=== PATIENT | male | born 1945 | race Caucasian/White ===

== ENCOUNTER 2016-07-14 12:44 | Emergency (ER) | payer OTHER ==
[~2016-07-14] VITALS: Ht 165.1 cm; Wt 110.0 kg
[~2016-07-14 12:44] MED LIST: ASPI81 PO; ATEN-100 PO; CLOP75 PO; COMBAER INH; FENO160T2 PO; FLUO20TA20 PO; FOLI1TAB PO; FURO20TA PO; GABA300C3 PO; HUMUINJ5 SC; LISI-360 PO; NITR0.1D TD; POTA-243 PO; SIMV40TA PO
[2016-07-14 13:09] VITALS: PULSE 78; RESP 18; TEMP 98; O2SAT 95
[2016-07-14 13:13] VITALS: BP 156/74; PULSE 75; RESP 18; O2SAT 98
[2016-07-14] MEDS ORDERED: SODIUM CHLORIDE 0.9% FLUSH 10 ML FLUSH IVF PRN (13:15)
[2016-07-14 13:17] VITALS: RESP 20; O2SAT 98
--- NOTE | 2016-07-14 13:35 | RADRPT ---
EXAM DATE/TIME: 07/14/2016 13:20 [facility] COMPARISON: No previous studies available for comparison. INDICATIONS : Short of breath. Lower extremity edema. MEDICAL HISTORY : Chronic obstructive pulmonary disease. SURGICAL HISTORY : None. ENCOUNTER: Initial ACUITY: 1 day PAIN SCORE: 0/10 LOCATION: Bilateral chest FINDINGS: Minimal changes are present in the left base. The right lung is clear.. The cardiomediastinal conto urs are unremarkable. Osseous structures are intact. CONCLUSION: Minimal parenchymal changes left base. Shane Kennedy MD FACR on July 14, 2016 at 13:33 Board Certified Radiologist. This report was verified electronically.
[2016-07-14 13:48] LABS: AUTOMATED NEUTROPHIL # 6.6 TH/MM3 (1.8-7.7); BASOPHIL # 0.1 TH/MM3 (0-0.2); BASOPHIL % 0.6 % (0.0-2.0); EOSINOPHIL # 0.2 TH/MM3 (0-0.4); EOSINOPHIL % 1.9 % (0.0-4.0); HEMATOCRIT 36.5 % (39.0-51.0); HEMO FLAGS DIFF FINAL; LYMPH % 27.7 % (9.0-44.0); LYMPHOCYTE # 2.9 TH/MM3 (1.0-4.8); MEAN CELL VOLUME 87.7 FL (80.0-100.0); MEAN CORPUSCULAR HEMOGLOBIN 29.2 PG (27.0-34.0); MEAN CORPUSCULAR HGB CONC 33.2 % (32.0-36.0); MONO % 6.4 % (0.0-8.0); NEUT % 63.4 % (16.0-70.0); PLATELET COUNT 206 TH/MM3 (150-450); RED BLOOD COUNT 4.17 MIL/MM3 (4.50-5.90); RED CELL DISTRIBUTION WIDTH 16.4 % (11.6-17.2); WHITE BLOOD COUNT 10.5 TH/MM3 (4.0-11.0)
[2016-07-14 14:04] LABS: APTT (PATIENT) 26.5 SEC (24.3-30.1); PROTHROMBIN TIME - PATIENT 10.7 SEC (9.8-11.6)
[2016-07-14 14:07] LABS: ANION GAP 8 MEQ/L (5-15); AST (GOT) 18 U/L (15-37); BLOOD UREA NITROGEN 18 MG/DL (7-18); CHLORIDE 103 MEQ/L (98-107); GLOMERULAR FILTRATION RATE 71 ML/MIN (>89); MAGNESIUM 1.4 MG/DL (1.5-2.5); POTASSIUM 3.4 MEQ/L (3.5-5.1); SODIUM (NA) 143 MEQ/L (136-145)
[2016-07-14 14:11] LABS: ALKALINE PHOSPHATASE 69 U/L (45-117); ALT (GPT) 22 U/L (12-78); CREATINE KINASE 288 U/L (39-308); TOTAL BILIRUBIN ADULT 0.3 MG/DL (0.2-1.0)
[2016-07-14 14:24] LABS: CKMB 4.8 NG/ML (0.5-3.6)
[2016-07-14] MEDS: RESP: ALBUTEROL 2.5 MG/IPRATROPIUM 0.5 MG NEB (SCH) INH (14:53)
--- NOTE | 2016-07-14 15:06 | PD ---
HPI Chief Complaint: Respiratory Distress Time Seen by Provider: 12:56 Travel History International Travel<30 days: No Contact w/Intl Traveler<30days: No Traveled to known affect area: No History of Present Illness HPI Patient is a 71-year-old male with history of COPD, CHF, diabetes, A. fib, coronary disease, chronic kidney disease who presents to emergency room for evaluation of possible CHF. Patient reports that he was admitted to for the hospital last month and went to the CT for a follow-up visit. Patient reports that he was told to come to the emergency room for evaluation of possible CHF exacerbation. Patient reports that he has been having dyspnea on exertion which has been ongoing for the past few years, patient reports that his symptoms are unchanged today. he does take Bumex for his CHF, and he does follow -up with Dr. Neff in the office. Patient was seen last week in the office and was told that his heart was fine and that he could be seen in 3 months. Patient reports that he also has history of COPD, reports that he does not use home oxygen. EMS reports that pt's pulse ox on room air was 93%. Patient denies any chest. This time. Patient reports that his dyspnea and exertion is at baseline for him. Patient reports no cough or congestion, reports that his legs are swollen but there are always swollen. Patient reports "i didn't want to come here but the mt made me come here." Patient reports no other c/o at this time [facility] Past Medical History Arthritis: Yes Asthma: Yes Autoimmune Disease: No Depression: Yes Cancer: No Cardiovascular Problems: Yes High Cholesterol: Yes Chest Pain: Yes COPD: Yes Diabetes: Yes Patient Takes Glucophage: No Endocrine: Yes Genitourinary: Yes Headaches: Yes Hypertension: Yes Immune Disorder: No Implanted Vascular Access Dvce: Yes Kidney Stones: Yes (LITHOTRIPSY IN PAST, STILL HAS SOME STONES) Musculoskeletal: Yes Neurologic: Yes Psychiatric: Yes Reproductive: No Respiratory: Yes Sleep Apnea: Yes (CPAP PT INSTRUCTED TO BRING WITH) Tetanus Vaccination: > 5 Years Influenza Vaccination: Yes Past Surgical History Body Medical Devices: CARDIAC STENT Cardiac Surgery: Yes (CARDIAC STENT) Eye Surgery: Yes (CATARACT BILAT.) Genitourinary Surgery: Yes (NEPHROURETERAL STENT FOR KIDNEY STONES) Pacemaker: No Other Surgery: Yes Social History Alcohol Use: No Tobacco Use: No Substance Use: No Allergies-Medications (Allergen,Severity, Reaction): Coded Allergies: Penicillin (Verified Allergy, Severe, "STIFF A BOARD", 07/14/16) Reported Meds & Prescriptions Reported Meds & Active Scripts Active Review of Systems General / Constitutional: No: Fever Eyes: No: Visual changes HENT: No: Headaches Cardiovascular: Positive: Dyspnea on exertion, No: Chest Pain or Discomfort Respiratory: Positive: Shortness of Breath Gastrointestinal: No: Abdominal Pain Genitourinary: No: Dysuria Musculoskeletal: No: Pain Skin: No Rash Neurologic: No: Weakness Psychiatric: No: Depression Endocrine: No: Polydipsia Hematologic/Lymphatic: No: Easy Bruising Physical Exam Narrative GENERAL: nad, nontoxic SKIN: Focused skin assessment warm/dry. HEAD: Atraumatic. Normocephalic. EYES: Pupils equal and round. No scleral icterus. No injection or drainage. ENT: No nasal bleeding or discharge. Mucous membranes pink and moist. NECK: Trachea midline. No JVD. CARDIOVASCULAR: Regular rate and rhythm. No murmur appreciated. RESPIRATORY: No accessory muscle use. patient with diffuse scattered wheezing on exam GASTROINTESTINAL: Abdomen soft, non-tender, nondistended. Hepatic and splenic margins not palpable. MUSCULOSKELETAL: No obvious deformities. No clubbing. No cyanosis. No edema. NEUROLOGICAL: Awake and alert. No obvious cranial nerve deficits. Motor grossly within normal limits. Normal speech. PSYCHIATRIC: Appropriate mood and affect; insight and judgment normal. Data Data Last Documented VS Vital Signs Date Time Temp Pulse Resp B/P Pulse Ox O2 Delivery O2 Flow Rate FiO2 07/14/16 18:22 90 20 151/70 96 Nasal Cannula 2 07/14/16 13:09 98.0 Orders Complete Blood Count With Diff (07/14/16 13:15) Comprehensive Metabolic Panel (07/14/16 13:15) B-Type Natriuretic Peptide (07/14/16 13:15) Act Partial Throm Time (Ptt) (07/14/16 13:15) Prothrombin Time / Inr (Pt) (07/14/16 13:15) Magnesium (Mg) (07/14/16 13:15) Ckmb (Isoenzyme) Profile (07/14/16 13:15) Troponin I (07/14/16 13:15) Urinalysis - C+S If Indicated (07/14/16 13:15) Iv Access Insert/Monitor (07/14/16 13:15) Electrocardiogram (07/14/16 13:15) Ecg Monitoring (07/14/16 13:15) Oximetry (07/14/16 13:15) Chest, Single Ap (07/14/16 13:15) Sodium Chloride 0.9% Flush (Ns Flush) (07/14/16 13:15) CKMB (07/14/16 13:20) CKMB% (07/14/16 13:20) Albuterol-Ipratropium Neb (Duoneb Neb) (07/14/16 14:45) Magnesium Sulfate 1 Gm Premix (Magnesium (07/14/16 15:15) Troponin I (07/14/16 15:39) Labs Laboratory Tests Test 07/14/16 07/14/16 13:20 15:45 White Blood Count 10.5 TH/MM3 Red Blood Count 4.17 MIL/MM3 Hemoglobin 12.1 GM/DL Hematocrit 36.5 % Mean Corpuscular Volume 87.7 FL Mean Corpuscular Hemoglobin 29.2 PG Mean Corpuscular Hemoglobin 33.2 % Concent Red Cell Distribution Width 16.4 % Platelet Count 206 TH/MM3 Mean Platelet Volume 10.1 FL Neutrophils (%) (Auto) 63.4 % Lymphocytes (%) (Auto) 27.7 % Monocytes (%) (Auto) 6.4 % Eosinophils (%) (Auto) 1.9 % Basophils (%) (Auto) 0.6 % Neutrophils # (Auto) 6.6 TH/MM3 Lymphocytes # (Auto) 2.9 TH/MM3 Monocytes # (Auto) 0.7 TH/MM3 Eosinophils # (Auto) 0.2 TH/MM3 Basophils # (Auto) 0.1 TH/MM3 CBC Comment DIFF FINAL Differential Comment Prothrombin Time 10.7 SEC Prothromb Time International 1.0 RATIO Ratio Activated Partial 26.5 SEC Thromboplast Time Sodium Level 143 MEQ/L Potassium Level 3.4 MEQ/L Chloride Level 103 MEQ/L Carbon Dioxide Level 32.0 MEQ/L Anion Gap 8 MEQ/L Blood Urea Nitrogen 18 MG/DL Creatinine 1.03 MG/DL Estimat Glomerular Filtration 71 ML/MIN Rate Random Glucose 139 MG/DL Calcium Level 8.5 MG/DL Magnesium Level 1.4 MG/DL Total Bilirubin 0.3 MG/DL Aspartate Amino Transf 18 U/L (AST/SGOT) Alanine Aminotransferase 22 U/L (ALT/SGPT) Alkaline Phosphatase 69 U/L Total Creatine Kinase 288 U/L Creatine Kinase MB 4.8 NG/ML Troponin I LESS THAN 0.02 LESS THAN 0.02 NG/ML NG/ML B-Type Natriuretic Peptide 23 PG/ML Total Protein 7.2 GM/DL Albumin 3.3 GM/DL MDM Medical Decision Making Medical Screen Exam Complete: Yes Emergency Medical Condition: Yes Interpretation(s) EKG at 1348: normal sinus rhythm at 76 beats for minute, first-degree AV block, right bundle branch block, no acute changes Vital Signs Date Time Temp Pulse Resp B/P Pulse Ox O2 Delivery O2 Flow Rate FiO2 07/14/16 13:17 20 98 Nasal Cannula 2 07/14/16 13:13 79 20 98 Nasal Cannula 2 07/14/16 13:13 75 18 156/74 98 Nasal Cannula 2 07/14/16 13:09 98.0 78 18 95 Laboratory Tests Test 07/14/16 13:20 White Blood Count 10.5 TH/MM3 (4.0-11.0) Red Blood Count 4.17 MIL/MM3 (4.50-5.90) Hemoglobin 12.1 GM/DL (13.0-17.0) Hematocrit 36.5 % (39.0-51.0) Mean Corpuscular Volume 87.7 FL (80.0-100.0) Mean Corpuscular Hemoglobin 29.2 PG (27.0-34.0) Mean Corpuscular Hemoglobin 33.2 % Concent (32.0-36.0) Red Cell Distribution Width 16.4 % (11.6-17.2) Platelet Count 206 TH/MM3 (150-450) Mean Platelet Volume 10.1 FL (7.0-11.0) Neutrophils (%) (Auto) 63.4 % (16.0-70.0) Lymphocytes (%) (Auto) 27.7 % (9.0-44.0) Monocytes (%) (Auto) 6.4 % (0.0-8.0) Eosinophils (%) (Auto) 1.9 % (0.0-4.0) Basophils (%) (Auto) 0.6 % (0.0-2.0) Neutrophils # (Auto) 6.6 TH/MM3 (1.8-7.7) Lymphocytes # (Auto) 2.9 TH/MM3 (1.0-4.8) Monocytes # (Auto) 0.7 TH/MM3 (0-0.9) Eosinophils # (Auto) 0.2 TH/MM3 (0-0.4) Basophils # (Auto) 0.1 TH/MM3 (0-0.2) CBC Comment DIFF FINAL Differential Comment Prothrombin Time 10.7 SEC (9.8-11.6) Prothromb Time International 1.0 RATIO Ratio Activated Partial 26.5 SEC Thromboplast Time (24.3-30.1) Sodium Level 143 MEQ/L (136-145) Potassium Level 3.4 MEQ/L (3.5-5.1) Chloride Level 103 MEQ/L (98-107) Carbon Dioxide Level 32.0 MEQ/L (21.0-32.0) Anion Gap 8 MEQ/L (5-15) Blood Urea Nitrogen 18 MG/DL (7-18) Creatinine 1.03 MG/DL (0.60-1.30) Estimat Glomerular Filtration 71 ML/MIN (>89) Rate Random Glucose 139 MG/DL (74-106) Calcium Level 8.5 MG/DL (8.5-10.1) Magnesium Level 1.4 MG/DL (1.5-2.5) Total Bilirubin 0.3 MG/DL (0.2-1.0) Aspartate Amino Transf 18 U/L (15-37) (AST/SGOT) Alanine Aminotransferase 22 U/L (12-78) (ALT/SGPT) Alkaline Phosphatase 69 U/L (45-117) Total Creatine Kinase 288 U/L (39-308) Creatine Kinase MB 4.8 NG/ML (0.5-3.6) Troponin I LESS THAN 0.02 NG/ML (0.02-0.05) B-Type Natriuretic Peptide 23 PG/ML (0-100) Total Protein 7.2 GM/DL (6.4-8.2) Albumin 3.3 GM/DL (3.4-5.0) Last Impressions Chest X-Ray 07/14/16 1315 Signed Impressions: Service Date/Time: Thursday, July 14, 2016 13:20 - CONCLUSION: Minimal parenchymal changes left base. Shane Kennedy MD FACR Differential Diagnosis COPD exacerbation, CHF, electrolyte abnormality, pneumonia Narrative Course Patient is a 71-year-old male who presents to emergency room for evaluation of dyspnea on exertion which has been ongoing for the past few years. Patient was sent from the CT for evaluation of this as there was concerns for possible CHF exacerbation. Patient reports that he has been feeling fine, reports that he was recently discharged from [facility], reports that he is always short of breath and always has shortness of breath on exertion which is unchanged from his baseline. On evaluation, patient is nontoxic appearing, he does have bilateral lymphedema which appears chronic. CBC: WBC 10.5, hemoglobin 12.1, hematocrit 36.5, platelets 206 BMP: sodium 143, potassium 3.4, BUN 18, cr 1.03, glucose 139, mag 1.4 (plan to replete mag) trop less than 0.02, ckmb 4.8 bnp: 23 Last Impressions Chest X-Ray 07/14/16 1315 Signed Impressions: Service Date/Time: Tuesday, July 14, 2016 13:20 - CONCLUSION: Minimal parenchymal changes left base. Shane Kennedy MD FACR Patient re-evaluated, reports that he is feeling better, no complaints at this time. I did obtain recent records from [facility] from his last admission, patient was admitted to hospital on 05/20/16 and discharged on 05/28/16 after a prolonged visit. patient was admitted to the hospital as he was complaining of shortness of breath and nonproductive cough for almost 2 months. Patient was found to be hypoxic with a pulse OF 91% on room air and was found to be in A. fib RVR. Patient was placed on a Cardizem drip while hospitalized, troponins were trended which were negative. He was discharged to home after work up for COPD exacerbation, new onset A. fib, with a prescription for azithromycin which has since completed. I did offer patient admission to the hospital for his symptoms, he does have a mildly elevated CK-MB, patient refuses admission at this time. patient reports that he lives at home with his and there is no one to care for his pet. Patient reports that he will return to ER should symptoms return or progress. Plan to repeat trop prior to discharge after 1st set of trop - if neg, will discharge patient to home Diagnosis Primary Impression: COPD with exacerbation Patient Instructions: General Instructions Additional Instructions: Please follow up with your primary care doctor as soon as possible Return to ER as needed Return to ER if symptoms worsen or progress Med/Other Pt SpecificInfo: Prescription(s) given Disposition: 01 DISCHARGE HOME Condition: Thi Vasquez DO July 14, 2016 15:06
[2016-07-14] MEDS: MAGNESIUM SULFATE 1 GM PREMIX 100 ML IV SCH ×2 (15:39→17:13)
[2016-07-14 16:39] VITALS: BP 149/68; PULSE 97; RESP 20; O2SAT 96
[2016-07-14 18:22] VITALS: BP 151/70; PULSE 90; RESP 20; O2SAT 96
--- NOTE | 2016-07-15 11:44 | EKG ---
Date Performed: 07/14/2016 Time Performed: 13:48:30 PTAGE: 71 years EKG: Sinus rhythm WITH FIRST DEGREE AV BLOCK MARKED LEFT AXIS DEVIATION RIGHT BUNDLE BRANCH BLOCK ABNORMAL ECG PREVIOUS TRACING : 12/28/2011 11.00 Compared to prior tracing no significant change DOCTOR: Odell Hernandez Interpretating Date/Time 07/15/2016 11:42:09
[2016-08-11] MEDS ORDERED: INSU1SOL SQ (07:13)
[2016-08-11] MEDS ORDERED: PERC5TAB12 PO (10:09)
== END 2016-07-14 19:48 | disposition home or self-care (01) ==
LOC: NEPE 12:44
DX: J44.1 Chronic obstructive pulmonary disease with (acute) exacerbation (principal); I89.0 Lymphedema, not elsewhere classified; R94.31 Abnormal electrocardiogram [ECG] [EKG]; E11.9 Type 2 diabetes mellitus without complications; I10 Essential (primary) hypertension; E78.00 Pure hypercholesterolemia, unspecified; G47.30 Sleep apnea, unspecified; Z87.39 Personal history of other diseases of the musculoskeletal system and connective tissue; Z87.09 Personal history of other diseases of the respiratory system; Z86.59 Personal history of other mental and behavioral disorders; Z86.79 Personal history of other diseases of the circulatory system; Z87.448 Personal history of other diseases of urinary system; Z86.69 Personal history of other diseases of the nervous system and sense organs
CPT/HCPCS: 71010; 80053; 82550; 82552; 83735; 83880; 84484; 85025; 85610; 85730; 93005; 94640; 94664; 96365; 99285; J3475

== ENCOUNTER 2016-07-20 15:31 | Emergency (ER) | payer OTHER ==
[~2016-07-20] VITALS: Ht 165.1 cm; Wt 110.0 kg
[2016-07-20 15:33] VITALS: BP 164/70; PULSE 94; RESP 17; TEMP 97.8; O2SAT 91
[2016-07-20 16:30] VITALS: O2SAT 96
[2016-07-20] MEDS ORDERED: SODIUM CHLORIDE 0.9% FLUSH 10 ML FLUSH IVF PRN (16:30)
[2016-07-20 16:39] VITALS: O2SAT 95
[2016-07-20] MEDS: RESP: ALBUTEROL 2.5 MG/IPRATROPIUM 0.5 MG NEB (SCH) INH ×2 (16:50→16:51)
--- NOTE | 2016-07-20 16:50 | RADRPT ---
EXAM DATE/TIME: 07/20/2016 16:38 [facility] COMPARISON: CHEST SINGLE AP, July 14, 2016, 13:20. INDICATIONS : Short of breath. MEDICAL HISTORY : Chronic obstructive pulmonary disease. Myocardial infarction. SURGICAL HISTORY : Coronary artery stent. ENCOUNTER: Initial ACUITY: >1 year PAIN SCORE: 0/10 LOCATION: Bilateral chest FINDINGS: There is a lesser degree of inspiration than on the prior examination with associated crowding of the bronchopulmonary markings in the infrahilar region bilaterally. No focal areas of consolidation see n. Both hemidiaphragms are well delineated. The heart is normal in size. CONCLUSION: No focal infiltrate seen when taking into account degree of inspiration. Jake Jenkins MD on July 20, 2016 at 16:44 Board Certified Radiologist. This report was verified electronically.
[2016-07-20 16:58] LABS: AUTOMATED NEUTROPHIL # 9.4 TH/MM3 (1.8-7.7); BASOPHIL # 0.1 TH/MM3 (0-0.2); BASOPHIL % 0.5 % (0.0-2.0); EOSINOPHIL # 0.1 TH/MM3 (0-0.4); EOSINOPHIL % 0.9 % (0.0-4.0); HEMATOCRIT 35.8 % (39.0-51.0); HEMO FLAGS DIFF FINAL; MEAN CELL VOLUME 86.9 FL (80.0-100.0); MEAN CORPUSCULAR HEMOGLOBIN 29.8 PG (27.0-34.0); MEAN CORPUSCULAR HGB CONC 34.3 % (32.0-36.0); MONO % 6.8 % (0.0-8.0); NEUT % 75.8 % (16.0-70.0); PLATELET COUNT 169 TH/MM3 (150-450); RED BLOOD COUNT 4.12 MIL/MM3 (4.50-5.90); RED CELL DISTRIBUTION WIDTH 15.5 % (11.6-17.2); WHITE BLOOD COUNT 12.4 TH/MM3 (4.0-11.0)
[2016-07-20 17:10] LABS: PROTHROMBIN TIME - PATIENT 10.6 SEC (9.8-11.6)
[2016-07-20 17:34] LABS: ANION GAP 7 MEQ/L (5-15); AST (GOT) 16 U/L (15-37); BICARBONATE 33.2 MEQ/L (21.0-32.0); BLOOD UREA NITROGEN 25 MG/DL (7-18); CHLORIDE 99 MEQ/L (98-107); GLOMERULAR FILTRATION RATE 33 ML/MIN (>89); MAGNESIUM 1.6 MG/DL (1.5-2.5); POTASSIUM 3.7 MEQ/L (3.5-5.1); SODIUM (NA) 139 MEQ/L (136-145)
[2016-07-20 17:35] LABS: ALT (GPT) 17 U/L (12-78)
--- NOTE | 2016-07-20 17:35 | PD ---
HPI Chief Complaint: Respiratory Symptoms Time Seen by Provider: 16:05 Travel History International Travel<30 days: No Contact w/Intl Traveler<30days: No Traveled to known affect area: No History of Present Illness HPI Patient is a 71-year-old male with history of COPD, CHF, Diabetes, afbid, CAD, CKD who presents to emergency room for evaluation of COPD versus CHF exacerbation. Patient reports that he has not been feeling well for the past week. Patient reports that he has a productive cough with shortness of breath. Patient reports that when he coughs, he is not bringing up any sputum. Reports that he has increased phlegm in his throat which she cannot bring up. Patient reports that he is also been having difficulties lying down when he sleeps, reports that he feels too short of breath with this. Patient reports that he has chronic lymphedema to his lower extremities, reports that his left leg appears to be more swollen than normal. PFSH Past Medical History Hx Anticoagulant Therapy: Yes (Eliquis) Arthritis: Yes Asthma: Yes Autoimmune Disease: No Depression: Yes Cancer: No Cardiovascular Problems: Yes (A.fib, MA w/ stents) High Cholesterol: Yes Chest Pain: Yes COPD: Yes Diabetes: Yes Patient Takes Glucophage: No Endocrine: Yes Genitourinary: Yes Headaches: Yes Hypertension: Yes Immune Disorder: No Implanted Vascular Access Dvce: Yes Kidney Stones: Yes Musculoskeletal: Yes Neurologic: Yes Psychiatric: Yes Reproductive: No Respiratory: Yes (COPD, Sleep Apnea) Sleep Apnea: Yes (CPAP PT INSTRUCTED TO BRING WITH) Past Surgical History Body Medical Devices: CARDIAC STENT Cardiac Surgery: Yes (CARDIAC STENT) Eye Surgery: Yes (CATARACT BILAT.) Genitourinary Surgery: Yes (NEPHROURETERAL STENT FOR KIDNEY STONES) Pacemaker: No Other Surgery: Yes Social History Alcohol Use: No Tobacco Use: No Substance Use: No Allergies-Medications (Allergen,Severity, Reaction): Coded Allergies: Penicillin (Verified Allergy, Severe, "STIFF A BOARD", 07/14/16) Reported Meds & Prescriptions Reported Meds & Active Scripts Active Reported Aspirin 81 (Aspirin) 81 Mg Tabdr 81 Mg PO HS Humulin R U-500 (Concentrate) Kwikpen Inj (Insulin Regular (Human) Concentrate Inj) 1,500 Units/3 Ml Pen 18 Units SQ AC DINNER Humulin R U-500 (Concentrate) Kwikpen Inj (Insulin Regular (Human) Concentrate Inj) 1,500 Units/3 Ml Pen 22 Units SQ AC LUNCH Humulin R U-500 (Concentrate) Kwikpen Inj (Insulin Regular (Human) Concentrate Inj) 1,500 Units/3 Ml Pen 26 Units SQ AC BREAKFAST Combivent Respimat Inh (Ipratropium-Albuterol Inh) 20-100 Fdc/Act Aero 1 Puff INH QID Eliquis (Apixaban) 2.5 Mg Tab 2.5 Mg PO BID Atorvastatin (Atorvastatin Calcium) 40 Mg Tab 40 Mg PO HS Bumetanide 1 Mg Tab 1 Mg PO BID Tamsulosin (Tamsulosin HCl) 0.4 Mg Cap 0.4 Mg PO HS Gabapentin 600 Mg Tab 600 Mg PO BID Digoxin 0.25 Mg Tab 0.25 Mg PO DAILY Diltiazem (Diltiazem HCl) 30 Mg Tab 30 Mg PO QID Review of Systems General / Constitutional: No: Fever Eyes: No: Visual changes HENT: No: Headaches Cardiovascular: Positive: Dyspnea on exertion, No: Chest Pain or Discomfort Respiratory: Positive: Cough, Shortness of Breath Gastrointestinal: No: Abdominal Pain Genitourinary: No: Dysuria Musculoskeletal: No: Pain Skin: No Rash Neurologic: No: Weakness Psychiatric: No: Depression Endocrine: No: Polydipsia Hematologic/Lymphatic: No: Easy Bruising Physical Exam Narrative GENERAL: moderate distress SKIN: Focused skin assessment warm/dry. HEAD: Atraumatic. Normocephalic. EYES: Pupils equal and round. No scleral icterus. No injection or drainage. ENT: No nasal bleeding or discharge. Mucous membranes pink and moist. NECK: Trachea midline. No JVD. CARDIOVASCULAR: Regular rate and rhythm. No murmur appreciated. RESPIRATORY: No accessory muscle use. Clear to auscultation. Breath sounds equal bilaterally. GASTROINTESTINAL: Abdomen soft, non-tender, nondistended. Hepatic and splenic margins not palpable. MUSCULOSKELETAL: No obvious deformities. No clubbing. No cyanosis. +3 edema to LLE, +2 edema to RLE NEUROLOGICAL: Awake and alert. No obvious cranial nerve deficits. Motor grossly within normal limits. Normal speech. PSYCHIATRIC: Appropriate mood and affect; insight and judgment normal. Data Data Last Documented VS Vital Signs Date Time Temp Pulse Resp B/P Pulse Ox O2 Delivery O2 Flow Rate FiO2 07/20/16 16:39 95 Nasal Cannula 07/20/16 16:30 2.00 07/20/16 15:33 97.8 94 17 164/70 Orders Complete Blood Count With Diff (07/20/16 16:24) Comprehensive Metabolic Panel (07/20/16 16:24) B-Type Natriuretic Peptide (07/20/16 16:24) Act Partial Throm Time (Ptt) (07/20/16 16:24) Prothrombin Time / Inr (Pt) (07/20/16 16:24) Magnesium (Mg) (07/20/16 16:24) Urinalysis - C+S If Indicated (07/20/16 16:24) Iv Access Insert/Monitor (07/20/16 16:24) Electrocardiogram (07/20/16 16:24) Ecg Monitoring (07/20/16 16:24) Oximetry (07/20/16 16:24) Chest, Single Ap (07/20/16 16:24) Sodium Chloride 0.9% Flush (Ns Flush) (07/20/16 16:30) Albuterol-Ipratropium Neb (Duoneb Neb) (07/20/16 16:30) Group A Rapid Strep Screen (07/20/16 16:24) Strep Culture (Group A) (07/20/16 16:30) Us Leg Venous Doppler Bilat (07/20/16 ) Ct Thorax/ Chest Wo Iv Contras (07/20/16 ) Labs Laboratory Tests Test 07/20/16 16:30 White Blood Count 12.4 TH/MM3 Red Blood Count 4.12 MIL/MM3 Hemoglobin 12.3 GM/DL Hematocrit 35.8 % Mean Corpuscular Volume 86.9 FL Mean Corpuscular Hemoglobin 29.8 PG Mean Corpuscular Hemoglobin 34.3 % Concent Red Cell Distribution Width 15.5 % Platelet Count 169 TH/MM3 Mean Platelet Volume 10.4 FL Neutrophils (%) (Auto) 75.8 % Lymphocytes (%) (Auto) 16.0 % Monocytes (%) (Auto) 6.8 % Eosinophils (%) (Auto) 0.9 % Basophils (%) (Auto) 0.5 % Neutrophils # (Auto) 9.4 TH/MM3 Lymphocytes # (Auto) 2.0 TH/MM3 Monocytes # (Auto) 0.8 TH/MM3 Eosinophils # (Auto) 0.1 TH/MM3 Basophils # (Auto) 0.1 TH/MM3 CBC Comment DIFF FINAL Differential Comment Prothrombin Time 10.6 SEC Prothromb Time International 1.0 RATIO Ratio Activated Partial 33.0 SEC Thromboplast Time Sodium Level 139 MEQ/L Potassium Level 3.7 MEQ/L Chloride Level 99 MEQ/L Carbon Dioxide Level 33.2 MEQ/L Anion Gap 7 MEQ/L Blood Urea Nitrogen 25 MG/DL Creatinine 2.01 MG/DL Estimat Glomerular Filtration 33 ML/MIN Rate Random Glucose 242 MG/DL Calcium Level 8.6 MG/DL Magnesium Level 1.6 MG/DL Total Bilirubin 0.5 MG/DL Aspartate Amino Transf 16 U/L (AST/SGOT) Alanine Aminotransferase 17 U/L (ALT/SGPT) Alkaline Phosphatase 83 U/L B-Type Natriuretic Peptide 41 PG/ML Total Protein 7.2 GM/DL Albumin 2.8 GM/DL MDM Medical Decision Making Medical Screen Exam Complete: Yes Emergency Medical Condition: Yes Interpretation(s) EKG at 1609: NSR at 88bpm, qt/qtc: 371/416, rbbb, ekg similar to ekg from Vital Signs Date Time Temp Pulse Resp B/P Pulse Ox O2 Delivery O2 Flow Rate FiO2 07/20/16 16:39 95 Nasal Cannula 07/20/16 16:30 96 Nasal Cannula 2.00 07/20/16 15:56 90 Room Air 07/20/16 15:33 97.8 94 17 164/70 91 Laboratory Tests Test 07/20/16 16:30 White Blood Count 12.4 TH/MM3 (4.0-11.0) Red Blood Count 4.12 MIL/MM3 (4.50-5.90) Hemoglobin 12.3 GM/DL (13.0-17.0) Hematocrit 35.8 % (39.0-51.0) Mean Corpuscular Volume 86.9 FL (80.0-100.0) Mean Corpuscular Hemoglobin 29.8 PG (27.0-34.0) Mean Corpuscular Hemoglobin 34.3 % Concent (32.0-36.0) Red Cell Distribution Width 15.5 % (11.6-17.2) Platelet Count 169 TH/MM3 (150-450) Mean Platelet Volume 10.4 FL (7.0-11.0) Neutrophils (%) (Auto) 75.8 % (16.0-70.0) Lymphocytes (%) (Auto) 16.0 % (9.0-44.0) Monocytes (%) (Auto) 6.8 % (0.0-8.0) Eosinophils (%) (Auto) 0.9 % (0.0-4.0) Basophils (%) (Auto) 0.5 % (0.0-2.0) Neutrophils # (Auto) 9.4 TH/MM3 (1.8-7.7) Lymphocytes # (Auto) 2.0 TH/MM3 (1.0-4.8) Monocytes # (Auto) 0.8 TH/MM3 (0-0.9) Eosinophils # (Auto) 0.1 TH/MM3 (0-0.4) Basophils # (Auto) 0.1 TH/MM3 (0-0.2) CBC Comment DIFF FINAL Differential Comment Prothrombin Time 10.6 SEC (9.8-11.6) Prothromb Time International 1.0 RATIO Ratio Activated Partial 33.0 SEC Thromboplast Time (24.3-30.1) Last Impressions Chest X-Ray 07/20/16 1624 Signed Impressions: Service Date/Time: Wednesday, July 20, 2016 16:38 - CONCLUSION: No focal infiltrate seen when taking into account degree of inspiration. Jake Jenkins MD Differential Diagnosis COPD exacerbation, CHF, pneumonia, DVT though unlikely as he is on eliquis, electrolyte abnormality Narrative Course 71 year old male who presents to ER with c/o of sob and non productive cough for the past week. Patient reports that he was seen in the ER last week and was discharged with diagnosis of COPD exacerbation. Patient reports that he is not feeling any better at this time. 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 Lab work as well as xray of chest ordered. CBC & BMP Diagram 07/20/16 16:30 cr today 2.01 - baseline cr 1.03 from 07/14/16 Patient re-evaluated, patient still not feeling any better, patient reports "i dont know why i'm coughing so much" chest xray neg for pneumonia - this is his second visit to the ER as I did see patient last week, plan to obtain ct of chest US pendings If ct of chest and US neg, then patient would be stable for discharge and follow up with his pcp at the [place]. I did reviewed this with patient as well as his son and they are agreeable to plan. Pt's son concerned as patient lives alone and wants to live independently but can't care for himself. Reports that the last time he was admitted to [facility], he fabricated multiple different stories to get admitted to the hospital. Ultimately, he would like his father to be discharged to home if everything is negative. Patient signed out to care of Dr. Forde at change of shift Diagnosis Primary Impression: COPD with exacerbation Additional Impression: Renal insufficiency Thi White DO Jul 20, 2016 17:35
[2016-07-20 17:37] LABS: ALKALINE PHOSPHATASE 83 U/L (45-117); TOTAL BILIRUBIN ADULT 0.5 MG/DL (0.2-1.0)
[2016-07-20] MEDS ORDERED: ATOR40TA16 PO (18:00)
[2016-07-20] MEDS ORDERED: INSU1SOL SQ ×3 (18:00)
[2016-07-20] MEDS ORDERED: TAMS0.4C4 PO (18:00)
[2016-07-20] MEDS ORDERED: APIX2.5T PO (18:00)
[2016-07-20] MEDS ORDERED: BUME1TAB PO (18:00)
[2016-07-20] MEDS ORDERED: GABA600T PO (18:00)
[2016-07-20] MEDS ORDERED: ASPI-110 PO (18:00)
[2016-07-20] MEDS ORDERED: IPRAAER INH (18:00)
[2016-07-20] MEDS ORDERED: DIGO0.25 PO (18:00)
[2016-07-20] MEDS ORDERED: DILT30TA PO (18:00)
[2016-07-20 18:35] LABS: BLOOD, URINE SMALL (NEG); GLUCOSE,URINE TRACE mg/dL (NEG); KETONE, URINE NEG (NEG); MUCUS URINE FEW /lpf (OCC); NITRITE,URINE NEG (NEG); URINE COLOR LIGHT-YELLOW (YELLW/STRAW)
[2016-07-20 18:42] LABS: COMMENT (UR) CULT NOT INDICATED; CULTURE IF INDICATED CULT NOT INDICATED
--- NOTE | 2016-07-20 19:07 | PD ---
Physical Exam Narrative General: The patient is a well-developed well-nourished male in no acute distress. Head and Neck exam: Head is normocephalic atraumatic. Eyes: EOMI, pupils are equal round and reactive to light. Nose: Midline septum with pink mucous membranes Mouth: Dentition unremarkable. Moist mucus membranes. Posterior oropharynx is not erythematous. No tonsillar hypertrophy. Uvula midline. Airway patent. Neck: No palpable lymphadenopathy. No nuchal rigidity. No thyromegaly. Cardiovascular: Regular rate and rhythm without murmurs, gallops, or rubs. Lungs: Clear to auscultation bilaterally. No wheezes, rhonchi, or rales. Abdomen: Soft, without tenderness to palpation in all 4 quadrants of the abdomen. No guarding, rebound, or rigidity. Normal bowel sounds are audible. Data Data Last Documented VS Vital Signs Date Time Temp Pulse Resp B/P Pulse Ox O2 Delivery O2 Flow Rate FiO2 07/20/16 20:50 102 20 153/68 95 Nasal Cannula 3 07/20/16 15:33 97.8 Orders Complete Blood Count With Diff (07/20/16 16:24) Comprehensive Metabolic Panel (07/20/16 16:24) B-Type Natriuretic Peptide (07/20/16 16:24) Act Partial Throm Time (Ptt) (07/20/16 16:24) Prothrombin Time / Inr (Pt) (07/20/16 16:24) Magnesium (Mg) (07/20/16 16:24) Urinalysis - C+S If Indicated (07/20/16 16:24) Iv Access Insert/Monitor (07/20/16 16:24) Electrocardiogram (07/20/16 16:24) Ecg Monitoring (07/20/16 16:24) Oximetry (07/20/16 16:24) Chest, Single Ap (07/20/16 16:24) Sodium Chloride 0.9% Flush (Ns Flush) (07/20/16 16:30) Albuterol-Ipratropium Neb (Duoneb Neb) (07/20/16 16:30) Group A Rapid Strep Screen (07/20/16 16:24) Strep Culture (Group A) (07/20/16 16:30) Us Leg Venous Doppler Bilat (07/20/16 ) Ct Thorax/ Chest Wo Iv Contras (07/20/16 ) Levofloxacin (Levaquin) (07/20/16 21:15) Methylprednisolone So Succ Inj (Solumedr (07/20/16 21:15) Sodium Chlorid 0.9% 500 Ml Inj (Ns 500 M (07/20/16 21:15) Ct Abd/Pel W/O Iv Contrast (07/20/16 21:06) Labs Laboratory Tests Test 07/20/16 07/20/16 16:30 18:00 White Blood Count 12.4 TH/MM3 Red Blood Count 4.12 MIL/MM3 Hemoglobin 12.3 GM/DL Hematocrit 35.8 % Mean Corpuscular Volume 86.9 FL Mean Corpuscular Hemoglobin 29.8 PG Mean Corpuscular Hemoglobin 34.3 % Concent Red Cell Distribution Width 15.5 % Platelet Count 169 TH/MM3 Mean Platelet Volume 10.4 FL Neutrophils (%) (Auto) 75.8 % Lymphocytes (%) (Auto) 16.0 % Monocytes (%) (Auto) 6.8 % Eosinophils (%) (Auto) 0.9 % Basophils (%) (Auto) 0.5 % Neutrophils # (Auto) 9.4 TH/MM3 Lymphocytes # (Auto) 2.0 TH/MM3 Monocytes # (Auto) 0.8 TH/MM3 Eosinophils # (Auto) 0.1 TH/MM3 Basophils # (Auto) 0.1 TH/MM3 CBC Comment DIFF FINAL Differential Comment Prothrombin Time 10.6 SEC Prothromb Time International 1.0 RATIO Ratio Activated Partial 33.0 SEC Thromboplast Time Sodium Level 139 MEQ/L Potassium Level 3.7 MEQ/L Chloride Level 99 MEQ/L Carbon Dioxide Level 33.2 MEQ/L Anion Gap 7 MEQ/L Blood Urea Nitrogen 25 MG/DL Creatinine 2.01 MG/DL Estimat Glomerular Filtration 33 ML/MIN Rate Random Glucose 242 MG/DL Calcium Level 8.6 MG/DL Magnesium Level 1.6 MG/DL Total Bilirubin 0.5 MG/DL Aspartate Amino Transf 16 U/L (AST/SGOT) Alanine Aminotransferase 17 U/L (ALT/SGPT) Alkaline Phosphatase 83 U/L B-Type Natriuretic Peptide 41 PG/ML Total Protein 7.2 GM/DL Albumin 2.8 GM/DL Urine Color LIGHT-YELLOW Urine Turbidity CLEAR Urine pH 6.0 Urine Specific [place] 1.009 Urine Protein 100 mg/dL Urine Glucose (UA) TRACE mg/dL Urine Ketones NEG mg/dL Urine Occult Blood SMALL Urine Nitrite NEG Urine Bilirubin NEG Urine Urobilinogen LESS THAN 2.0 MG/DL Urine Leukocyte Esterase NEG Urine RBC 4 /hpf Urine WBC 3 /hpf Urine Mucus FEW /lpf Microscopic Urinalysis Comment CULT NOT INDICATED MDM Medical Record Reviewed: Yes Supervised Visit with OMID: No Interpretation(s) Last Impressions Abdomen/Pelvis CT 07/20/16 2106 Signed Impressions: Service Date/Time: Wednesday, July 20, 2016 21:45 - CONCLUSION: 1. Moderate hydronephrosis on the right secondary to a proximal ureteral calculus measuring 7-8 mm. 2. Scattered diverticulosis. 3. Extensive soft tissue thickening involving the lower abdominal wall bilaterally. Fabio Anthony MD Chest X-Ray 07/20/16 1624 Signed Impressions: Service Date/Time: Wednesday, July 20, 2016 16:38 - CONCLUSION: No focal infiltrate seen when taking into account degree of inspiration. Jake Jenkins MD Lower Extremity Ultrasound 07/20/16 0000 Signed Impressions: Service Date/Time: Wednesday, July 20, 2016 18:47 - CONCLUSION: 1. Edematous soft tissues in both lower extremities. 2. Jiang's cyst right popliteal fossa measuring 2.5 x 2.4 x 1.3 cm. 3. No DVT in either leg. Fabio Anhtony MD Chest CT 07/20/16 0000 Signed Impressions: Service Date/Time: Wednesday, July 20, 2016 20:10 - CONCLUSION: 1. Minimal patchy density right lower lobe to be atelectasis or minimal infiltrate. 2. Extensive coronary artery calcifications. 3. Suspected hydronephrosis right kidney. Fabio Anthony MD Narrative Course During the course of the patients emergency department visit, the patients history, examination, and differential diagnosis were reviewed with the patient. The patient had IV access obtained and blood work sent for analysis. The patient's case was checked out to me by Dr. White. Please see her complete history and physical. The paste was checked out to me pending CT scan of the thorax, and ultrasound to rule out DVT of the lower extremities. The patient had presented with shortness of breath, worse with exertion. The patient was seen initially on July 14 with similar concerns. The patient was diagnosed with a COPD exacerbation. The patient reports that the symptoms have not improved, thus he reports back for evaluation. The patient was initially provided a DuoNeb 1. The patients laboratory studies were reviewed and remarkable for a white count 12.4, hemoglobin 12.3, platelets 169 with 75.8 neutrophils, CMP is remarkable for CO2 of 33.2, BUN 25, creatinine 2.01, glucose 242, BNP 41, albumin 2.8, PT 10.6, INR 1.0, PTT 33, urinalysis shows 100 protein, small occult blood, 4 rbc's , 3 wbc's, culture not indicated. Radiology studies were reviewed and remarkable for a chest x-ray that shows no focal infiltrate seen. CT scan of the chest reveals a minimal patchy density right lower lobe thought to be atelectasis versus minimal infiltrate. Given the patient's elevated white blood cell count and worsening shortness of breath the patient will be treated for an early pneumonia. The patient is noted to have extensive coronary artery calcifications, suspected hydronephrosis of the right kidney. On further questioning, the patient reports that he is followed by Dr. Coppola for a history of kidney stones. He reports that recently he had a ureteral stent in place on the right side for 4 months which was removed. A CT scan of the abdomen and pelvis shows moderate hydronephrosis of the right secondary to a proximal ureteral calculus measuring 7-8 mm. Scattered diverticulosis, extensive soft tissue thickening along the lower abdominal wall bilaterally. The patient will be discharged home with a prescription for Levaquin and a Medrol Dosepak taper. He was given his first dose of Levaquin by mouth. He was given Solu-Medrol 125 mg IV. He was instructed to follow-up with Dr. Coppola for an appointment by calling in the morning. The patient is resting comfortably and feels better, is alert and in no distress. The patients results and examination findings were discussed with the patient. The repeat examination is unremarkable and benign. The history, exam, diagnostic testing, and current condition do not suggest any significant pathology to warrant further testing, continued ED treatment, admission, or surgical evaluation at this point. The vital signs have been stable. The patient does not have uncontrollable pain, intractable vomiting, or other significant symptoms. The patient's condition is stable and appropriate for discharge. The patient will pursue further outpatient evaluation with a primary care physician or other designated or consulting physician as indicated in the discharge instructions. The patient expressed understanding and was agreeable with this plan. Diagnosis Primary Impression: COPD with exacerbation Additional Impressions: Renal insufficiency Hydronephrosis, right Kidney stone on right side Referrals: Primary Care Physician 3 days Urologist 1 day Patient Instructions: Bacterial Pneumonia (ED), COPD (Chronic Obstructive Pulmonary Disease) (ED), General Instructions, Kidney Stones (ED) Med/Other Pt SpecificInfo: Prescription(s) given Scripts Levofloxacin (Levaquin)500 Mg Tablet1 Tab PO q day 9 Days Prov:María Elena Forde MD 07/20/16 Methylprednisolone Dosepak (Medrol Dosepak)4 Mg Dspk4 Mg PO DIRECTED #1 DSPK Ref 0 Per Pharmacist direction Prov:María Elena Forde MD 07/20/16 Disposition: 01 DISCHARGE HOME Condition: Stable María Elena Forde MD Jul 20, 2016 19:07
--- NOTE | 2016-07-20 19:21 | RADRPT ---
EXAM DATE/TIME: 07/20/2016 18:47 [facility] COMPARISON: No previous studies available for comparison. INDICATIONS : Bilateral leg swelling. MEDICAL HISTORY : Myocardial infarction. Hypercholesterolemia. Emphysema. Numbness. Afib. COPD. Sleep apnea. Chest pain . HTN. Asthma. Dyspnea. Renal disease. Renal calculi. Arthritis. Diabetes. Depression. Anticoagulant therapy, Eliquis. SURGICAL HISTORY : Coronary artery stent. Bilateral cataracts with lens implants. Nephroureteral stent for kidney stones . ENCOUNTER: Initial ACUITY: 3 weeks PAIN SCORE: 4/10 LOCATION: Bilateral leg. TECHNIQUE: Venous ultrasound of the left and right leg was performed from the inguinal ligament to the proximal calf. Real-time, color Doppler and spectral tracing, compression and augmentation techniques were us ed. FINDINGS: RIGHT LEG: There is normal compressibility of the deep venous system from the inguinal region to the proximal ca lf. No echogenic clot is seen in the lumen of the common femoral, femoral, popliteal, and posterior tibial veins. There is a normal response of the venous system to proximal and distal augmentation an d respiration. Prominent edema. LEFT LEG: There is normal compressibility of the deep venous system from the inguinal region to the proximal ca lf. No echogenic clot is seen in the lumen of the common femoral, femoral, popliteal, and posterior tibial veins. There is a normal response of the venous system to proximal and distal augmentation an d respiration. Prominent edema. CONCLUSION: 1. Edematous soft tissues in both lower extremities. 2. Jiang's cyst right popliteal fossa measuring 2.5 x 2.4 x 1.3 cm. 3. No DVT in either leg. Fabio Anthony MD on July 20, 2016 at 19:18 Board Certified Radiologist. This report was verified electronically.
--- NOTE | 2016-07-20 20:21 | RADRPT ---
EXAM DATE/TIME: 07/20/2016 20:10 [facility] COMPARISON: No previous studies available for comparison. INDICATIONS : Shortness of breath and cough. Bilateral leg swelling. RADIATION DOSE: 8.72 CTDIvol (mGy) MEDICAL HISTORY : Hypertension. Myocardial infarction. Chronic obstructive pulmonary disease. Diabetes. Emphysema. SURGICAL HISTORY : Cardiac stents. ENCOUNTER: Initial ACUITY: 1 day PAIN SCALE: 4/10 LOCATION: Bilateral chest TECHNIQUE: Volumetric scanning of the chest was performed. Using automated exposure control and adjustment of t he mA and/or kV according to patient size, radiation dose was kept as low as reasonably achievable to obtain optimal diagnostic quality images. FINDINGS: LUNGS: There is minimal patchy density right lower lobe. Small nodular focus left lower lobe likely scarring . Subsegmental atelectasis in the lingula. No concerning pulmonary nodule is visualized. PLEURAE: There is no pleural thickening or pleural effusion. MEDIASTINUM: The heart and great vessels demonstrate no acute abnormality. There is no mediastinal or hilar lymph adenopathy. Extensive coronary artery calcifications. AXILLAE: Within normal limits. No lymphadenopathy. MUSCULOSKELETAL: Within normal limits for patient age. MISCELLANEOUS: The visualized upper abdominal organs demonstrate hydronephrosis right kidney CONCLUSION: 1. Minimal patchy density right lower lobe to be atelectasis or minimal infiltrate. 2. Extensive coronary artery calcifications. 3. Suspected hydronephrosis right kidney. Fabio Anthony MD on July 20, 2016 at 20:18 Board Certified Radiologist. This report was verified electronically.
[2016-07-20 20:50] VITALS: BP 153/68; PULSE 102; RESP 20; O2SAT 95
[2016-07-20] MEDS ORDERED: LEVA500T20 PO (21:04)
[2016-07-20] MEDS ORDERED: MEDR4PAK PO (21:04)
[2016-07-20] MEDS ORDERED: LEVOFLOXACIN 500 MG TAB PO ONE (21:15)
[2016-07-20] MEDS ORDERED: methylPREDNISolone SOD SUCC 125 MG/2 ML VIAL IV PUSH ONE (21:15)
[2016-07-20] MEDS ORDERED: SODIUM CHLORID 0.9% 500 ML INJ 500 ML IV ONE (21:15)
--- NOTE | 2016-07-20 22:12 | RADRPT ---
EXAM DATE/TIME: 07/20/2016 21:45 [facility] COMPARISON: No previous studies available for comparison. INDICATIONS : Evaluate for hydronephrosis. Possible renal stone. ORAL CONTRAST: No oral contrast ingested. RADIATION DOSE: 8.46 CTDIvol (mGy) MEDICAL HISTORY : Cardiovascular disease. Hypertension. Chronic obstructive pulmonary disease.Diabetes Emphysema SURGICAL HISTORY : Cardiac stents ENCOUNTER: Initial ACUITY: 1 day PAIN SCALE: 5/10 LOCATION: Bilateral upper quadrant TECHNIQUE: Volumetric scanning of the abdomen and pelvis was performed. Using automated exposure control and ad justment of the mA and/or kV according to patient size, radiation dose was kept as low as reasonably achievable to obtain optimal diagnostic quality images. FINDINGS: LOWER LUNGS: The visualized lower lungs are clear. LIVER: Homogeneous density without lesion. There is no dilation of the biliary tree. No calcified gallston es. SPLEEN: Normal size without lesion. PANCREAS: Within normal limits. KIDNEYS: There is moderate right-sided hydronephrosis secondary to a proximal ureteral calculus measuring 7-8 mm. Punctate nonobstructing left-sided renal calculus measuring 2 mm. ADRENAL GLANDS: Within normal limits. VASCULAR: There is no aortic aneurysm. BOWEL/MESENTERY: Scattered diverticulosis. There is no free intraperitoneal air or fluid. ABDOMINAL WALL: Within normal limits. RETROPERITONEUM: There is no lymphadenopathy. BLADDER: No wall thickening or mass. REPRODUCTIVE: Within normal limits. INGUINAL: There is no lymphadenopathy or hernia. MUSCULOSKELETAL: Extensive soft tissue thickening involving the lower abdominal wall bilaterally.. CONCLUSION: 1. Moderate hydronephrosis on the right secondary to a proximal ureteral calculus measuring 7-8 mm. 2. Scattered diverticulosis. 3. Extensive soft tissue thickening involving the lower abdominal wall bilaterally. Fabio Anthony MD on July 20, 2016 at 22:07 Board Certified Radiologist. This report was verified electronically.
--- NOTE | 2016-07-21 19:35 | EKG ---
Date Performed: 07/20/2016 Time Performed: 16:09:48 PTAGE: 71 years EKG: Sinus rhythm WITH FIRST DEGREE AV BLOCK MARKED LEFT AXIS DEVIATION RIGHT BUNDLE BRANCH BLOCK ABNORMAL ECG Compare d to the PREVIOUS TRACING from 07/14/16, no significant change DOCTOR: Odell Hernandez Interpretating Date/Time 07/21/2016 19:35:13
[2016-08-11] MEDS ORDERED: INSU1SOL SQ (07:13)
[2016-08-11] MEDS ORDERED: PERC5TAB12 PO (10:09)
== END 2016-07-20 23:12 | disposition home or self-care (01) ==
LOC: NEPE 15:31
DX: J44.1 Chronic obstructive pulmonary disease with (acute) exacerbation (principal); N28.9 Disorder of kidney and ureter, unspecified; N13.30 Unspecified hydronephrosis; N20.0 Calculus of kidney; J18.9 Pneumonia, unspecified organism; R22.40 Localized swelling, mass and lump, unspecified lower limb; R06.02 Shortness of breath; R94.31 Abnormal electrocardiogram [ECG] [EKG]; E11.9 Type 2 diabetes mellitus without complications; I10 Essential (primary) hypertension; E78.00 Pure hypercholesterolemia, unspecified; Z79.4 Long term (current) use of insulin; Z79.01 Long term (current) use of anticoagulants; Z87.09 Personal history of other diseases of the respiratory system; Z86.79 Personal history of other diseases of the circulatory system; Z87.39 Personal history of other diseases of the musculoskeletal system and connective tissue; Z87.448 Personal history of other diseases of urinary system; Z86.69 Personal history of other diseases of the nervous system and sense organs; Z86.59 Personal history of other mental and behavioral disorders
CPT/HCPCS: 71010; 71250; 74176; 80053; 81001; 83735; 83880; 85025; 85610; 85730; 87081; 87880; 93005; 93970; 94640; 94664; 96361; 96374; 99285; J2930; J7040

== ENCOUNTER 2016-07-23 16:01 | Inpatient (IN) | payer OTHER, MEDICARE ==
[~2016-07-23] VITALS: Ht 165.1 cm; Wt 108.9 kg
[~2016-07-23 16:01] MED LIST changes: +APIX2.5T PO; +ASPI-110 PO; -ASPI81 PO; -ATEN-100 PO; +ATOR40TA16 PO; +BUME1TAB PO; -CLOP75 PO; -COMBAER INH; +DIGO0.25 PO; +DILT30TA PO; -FENO160T2 PO; -FLUO20TA20 PO; -FOLI1TAB PO; -FURO20TA PO; -GABA300C3 PO; +GABA600T PO; -HUMUINJ5 SC; +INSU1SOL SQ; +IPRAAER INH; +LEVA500T20 PO; -LISI-360 PO; +MEDR4PAK PO; -NITR0.1D TD; -POTA-243 PO; -SIMV40TA PO; +TAMS0.4C4 PO
[2016-07-23 16:04] VITALS: BP 183/85; PULSE 76; RESP 24; TEMP 97.8; O2SAT 94
--- NOTE | 2016-07-23 16:20 | PD ---
Physical Exam Date Seen by Provider: Jul 23, 2016 Time Seen by Provider: 16:17 Data Data Last Documented VS Vital Signs Date Time Temp Pulse Resp B/P Pulse Ox O2 Delivery O2 Flow Rate FiO2 07/23/16 16:04 97.8 76 24 183/85 94 Room Air [facility] Supervised Visit with [facility]: No Narrative Course 71 YO M with complaint of "high" reading on glucometer. Last insulin dose 22 units at ~1pm. Seen at urology today. Fingerstick BG 480 in triage. Vitals reviewed. Awaiting bed placement. Mansi Garcia Jul 23, 2016 16:20
[2016-07-23] MEDS ORDERED: SODIUM CHLORIDE 0.9% FLUSH 10 ML FLUSH IVF PRN (16:45)
[2016-07-23 16:48] VITALS: O2SAT 94
[2016-07-23 17:10] LABS: BLOOD GAS BASE EXCESS 2.8 mmol/L (-2-2); BLOOD GAS CARBOXYHEMOGLOBIN 1.4 % (0-4); BLOOD GAS HCO3 27 mmol/L (22-26); BLOOD GAS METHEMOGLOBIN 0.6 % (0-2); BLOOD GAS O2 HGB SATURATION 91 % (90-100); BLOOD GAS OXYGEN CONTENT 15.4 Vol % (12.0-20.0); BLOOD GAS PCO2 41 mmHg (38-42); BLOOD GAS PO2 66 mmHG (61-120); CRITICAL VALUE NO; DRAW SITE RT RADIAL; FIO2 21 %; NUMBER OF ARTERIAL PUNCTURES 1; OXYGEN DEVICE ROOM AIR; STAT YES; TEMP CORR TO 98.6; ULNAR PULSE PRESENT
[2016-07-23 17:10] LABS: AUTOMATED NEUTROPHIL # 13.2 TH/MM3 (1.8-7.7); BASOPHIL % 0.1 % (0.0-2.0); HEMATOCRIT 36.1 % (39.0-51.0); HEMO FLAGS DIFF FINAL; LYMPH % 7.9 % (9.0-44.0); LYMPHOCYTE # 1.2 TH/MM3 (1.0-4.8); MEAN CELL VOLUME 87.7 FL (80.0-100.0); MEAN CORPUSCULAR HEMOGLOBIN 28.9 PG (27.0-34.0); MONO % 3.8 % (0.0-8.0); NEUT % 88.2 % (16.0-70.0); PLATELET COUNT 222 TH/MM3 (150-450); RED BLOOD COUNT 4.12 MIL/MM3 (4.50-5.90); RED CELL DISTRIBUTION WIDTH 16.1 % (11.6-17.2)
--- NOTE | 2016-07-23 17:28 | RADRPT ---
EXAM DATE/TIME: 07/23/2016 17:18 [facility] COMPARISON: CHEST SINGLE AP, July 20, 2016, 16:38. INDICATIONS : Cough for 3 months. MEDICAL HISTORY : Cardiovascular disease. Hypertension. Chronic obstructive pulmonary disease. Diabetes. Emphysema SURGICAL HISTORY : Coronary artery stent. ENCOUNTER: Initial ACUITY: 3 months PAIN SCORE: 2/10 LOCATION: Bilateral chest FINDINGS: A single view of the chest demonstrates the lungs to be symmetrically aerated without evidence of mas s, infiltrate or effusion. The cardiomediastinal contours are unremarkable. Osseous structures are intact. CONCLUSION: No acute disease. Shane Kennedy MD FACR on July 23, 2016 at 17:26 Board Certified Radiologist. This report was verified electronically.
[2016-07-23 17:51] LABS: ALT (GPT) 35 U/L (12-78); ANION GAP 9 MEQ/L (5-15); AST (GOT) 54 U/L (15-37); BETA-HYDROXYBUTYRATE 0.13 MMOL/L (0.00-0.39); BICARBONATE 30.4 MEQ/L (21.0-32.0); BLOOD UREA NITROGEN 53 MG/DL (7-18); CHLORIDE 96 MEQ/L (98-107); GLOMERULAR FILTRATION RATE 30 ML/MIN (>89); POTASSIUM 4.3 MEQ/L (3.5-5.1); SODIUM (NA) 135 MEQ/L (136-145)
[2016-07-23 17:52] LABS: ALKALINE PHOSPHATASE 87 U/L (45-117); TOTAL BILIRUBIN ADULT 0.2 MG/DL (0.2-1.0)
[2016-07-23] MEDS ORDERED: INSULIN HUMAN REGULAR 1,000 UNITS/10 ML VIAL SQ ONE (18:00)
[2016-07-23 18:16] LABS: BLOOD, URINE SMALL (NEG); GLUCOSE,URINE 1000 mg/dL (NEG); KETONE, URINE NEG (NEG); NITRITE,URINE NEG (NEG); PH, URINE 6.5 (5.0-8.5); SQUAMOUS EPITHELIAL CELL URINE <1 /hpf (0-5); URINE COLOR LIGHT-YELLOW (YELLW/STRAW)
[2016-07-23 18:17] LABS: COMMENT (UR) CULT NOT INDICATED; CULTURE IF INDICATED CULT NOT INDICATED
--- NOTE | 2016-07-23 19:34 | PD ---
HPI Chief Complaint: Diabetic Time Seen by Provider: 16:30 Travel History International Travel<30 days: No Contact w/Intl Traveler<30days: No Traveled to known affect area: No History of Present Illness HPI 71-year-old male came to the emergency room for his sugar reading high for past few days. Patient was in the emergency room on July 18 and before that on July 14 for shortness of breath. Patient was given Levaquin and Medrol Dosepak. He is been taking feels like he supposed to. Her lately sugar has been reading high. He is a diabetic. He went to see his primary care today and was sent to the emergency room to be admitted. Patient has also noticed that his legs have been more swollen than usual. He takes Bumex as a diuretic. Vital signs were within acceptable limits. No history of fever or chills. No history of vomiting or diarrhea. PFSH Past Medical History Narrative Medical List of his home medications reviewed from the nursing note. Hx Anticoagulant Therapy: Yes (Eliquis) Arthritis: Yes Asthma: Yes Autoimmune Disease: No Depression: Yes Cancer: No Cardiovascular Problems: Yes (A.fib, OK w/ stents) High Cholesterol: Yes Chest Pain: Yes COPD: Yes Diabetes: Yes Patient Takes Glucophage: No Endocrine: Yes Genitourinary: Yes Headaches: Yes Hypertension: Yes Immune Disorder: No Implanted Vascular Access Dvce: Yes Kidney Stones: Yes Musculoskeletal: Yes Neurologic: Yes Psychiatric: Yes Reproductive: No Respiratory: Yes (COPD, Sleep Apnea) Sleep Apnea: Yes (CPAP PT INSTRUCTED TO BRING WITH) Past Surgical History Body Medical Devices: CARDIAC STENT Cardiac Surgery: Yes (CARDIAC STENT) Eye Surgery: Yes (CATARACT BILAT.) Genitourinary Surgery: Yes (NEPHROURETERAL STENT FOR KIDNEY STONES) Pacemaker: No Other Surgery: Yes Social History Alcohol Use: No Tobacco Use: No Substance Use: No Allergies-Medications (Allergen,Severity, Reaction): Coded Allergies: Penicillin (Verified Allergy, Severe, "STIFF A BOARD", 07/14/16) Comments List of his allergies reviewed from the nursing note. Reported Meds & Prescriptions Reported Meds & Active Scripts Active Levaquin (Levofloxacin) 500 Mg Tablet 1 Tab PO Q DAY 9 Days Medrol Dosepak (Methylprednisolone) 4 Mg Dspk 4 Mg PO DIRECTED Per Pharmacist direction Reported Aspirin 81 (Aspirin) 81 Mg Tabdr 81 Mg PO HS Humulin R U-500 (Concentrate) Kwikpen Inj (Insulin Regular (Human) Concentrate Inj) 1,500 Units/3 Ml Pen 18 Units SQ AC DINNER Humulin R U-500 (Concentrate) Kwikpen Inj (Insulin Regular (Human) Concentrate Inj) 1,500 Units/3 Ml Pen 22 Units SQ AC LUNCH Humulin R U-500 (Concentrate) Kwikpen Inj (Insulin Regular (Human) Concentrate Inj) 1,500 Units/3 Ml Pen 26 Units SQ AC BREAKFAST Combivent Respimat Inh (Ipratropium-Albuterol Inh) 20-100 Senior Living/Act Aero 1 Puff INH QID Eliquis (Apixaban) 2.5 Mg Tab 2.5 Mg PO BID Atorvastatin (Atorvastatin Calcium) 40 Mg Tab 40 Mg PO HS Bumetanide 1 Mg Tab 1 Mg PO BID Tamsulosin (Tamsulosin HCl) 0.4 Mg Cap 0.4 Mg PO HS Gabapentin 600 Mg Tab 600 Mg PO BID Digoxin 0.25 Mg Tab 0.25 Mg PO DAILY Diltiazem (Diltiazem HCl) 30 Mg Tab 30 Mg PO QID Narrative Medication List of his home medications reviewed from the nursing note. Review of Systems Except as stated in HPI: all other systems reviewed are Neg Physical Exam Narrative GENERAL: Lethargic but answering questions appropriately, moderate distress, morbidly obese SKIN: Focused skin assessment warm/dry. HEAD: Atraumatic. Normocephalic. EYES: Pupils equal and round. No scleral icterus. No injection or drainage. ENT: No nasal bleeding or discharge. Mucous membranes pink and moist. NECK: Trachea midline. No JVD. CARDIOVASCULAR: Regular rate and rhythm. No murmur appreciated. RESPIRATORY: Breath sounds diminished on the left side GASTROINTESTINAL: Abdomen soft, non-tender, nondistended. Hepatic and splenic margins not palpable. MUSCULOSKELETAL: No obvious deformities. No clubbing. No cyanosis. Bilateral severe pedal edema NEUROLOGICAL: Awake and alert. No obvious cranial nerve deficits. Motor grossly within normal limits. Normal speech. PSYCHIATRIC: Appropriate mood and affect; insight and judgment normal. Data Data Last Documented VS Vital Signs Date Time Temp Pulse Resp B/P Pulse Ox O2 Delivery O2 Flow Rate FiO2 07/23/16 16:48 94 Room Air 07/23/16 16:04 97.8 76 24 183/85 Orders Complete Blood Count With Diff (07/23/16 16:38) Comprehensive Metabolic Panel (07/23/16 16:38) Beta Hydroxybutyrate (Acetone) (07/23/16 16:38) Urinalysis - C+S If Indicated (07/23/16 16:38) Chest, Single Ap (07/23/16 16:38) Arterial Blood Gas (Abg) (07/23/16 16:38) Ecg Monitoring (07/23/16 16:38) Iv Access Insert/Monitor (07/23/16 16:38) Oximetry (07/23/16 16:38) NPO (07/23/16 16:38) Sodium Chloride 0.9% Flush (Ns Flush) (07/23/16 16:45) Insulin Human Regular Inj (Novolin R Inj (07/23/16 18:00) Admit Order (Ed Use Only) (07/23/16 19:34) Labs Laboratory Tests Test 07/23/16 07/23/16 07/23/16 16:54 16:59 17:50 White Blood Count 15.0 TH/MM3 Red Blood Count 4.12 MIL/MM3 Hemoglobin 11.9 GM/DL Hematocrit 36.1 % Mean Corpuscular Volume 87.7 FL Mean Corpuscular Hemoglobin 28.9 PG Mean Corpuscular Hemoglobin 33.0 % Concent Red Cell Distribution Width 16.1 % Platelet Count 222 TH/MM3 Mean Platelet Volume 10.5 FL Neutrophils (%) (Auto) 88.2 % Lymphocytes (%) (Auto) 7.9 % Monocytes (%) (Auto) 3.8 % Eosinophils (%) (Auto) 0.0 % Basophils (%) (Auto) 0.1 % Neutrophils # (Auto) 13.2 TH/MM3 Lymphocytes # (Auto) 1.2 TH/MM3 Monocytes # (Auto) 0.6 TH/MM3 Eosinophils # (Auto) 0.0 TH/MM3 Basophils # (Auto) 0.0 TH/MM3 CBC Comment DIFF FINAL Differential Comment Sodium Level 135 MEQ/L Potassium Level 4.3 MEQ/L Chloride Level 96 MEQ/L Carbon Dioxide Level 30.4 MEQ/L Anion Gap 9 MEQ/L Blood Urea Nitrogen 53 MG/DL Creatinine 2.19 MG/DL Estimat Glomerular Filtration 30 ML/MIN Rate Random Glucose 455 MG/DL Calcium Level 8.9 MG/DL Total Bilirubin 0.2 MG/DL Aspartate Amino Transf 54 U/L (AST/SGOT) Alanine Aminotransferase 35 U/L (ALT/SGPT) Alkaline Phosphatase 87 U/L Total Protein 7.7 GM/DL Albumin 3.1 GM/DL B-Hydroxybutyrate 0.13 MMOL/L Blood Gas Puncture Site RT RADIAL Blood Gas Patient Temperature 98.6 Blood Gas HCO3 27 mmol/L Blood Gas Base Excess 2.8 mmol/L Blood Gas Oxygen Saturation 91 % Arterial Blood pH 7.43 Arterial Blood Partial 41 mmHg Pressure CO2 Arterial Blood Partial 66 mmHG Pressure O2 Arterial Blood Oxygen Content 15.4 Vol % Arterial Blood 1.4 % Carboxyhemoglobin Arterial Blood Methemoglobin 0.6 % Blood Gas Hemoglobin 12.0 G/DL Oxygen Delivery Device ROOM AIR Blood Gas Inspired Oxygen 21 % Urine Color LIGHT-YELLOW Urine Turbidity CLEAR Urine pH 6.5 Urine Specific [place] 1.013 Urine Protein 30 mg/dL Urine Glucose (UA) 1000 mg/dL Urine Ketones NEG mg/dL Urine Occult Blood SMALL Urine Nitrite NEG Urine Bilirubin NEG Urine Urobilinogen LESS THAN 2.0 MG/DL Urine Leukocyte Esterase NEG Urine RBC 1 /hpf Urine WBC 1 /hpf Urine Squamous Epithelial <1 /hpf Cells Microscopic Urinalysis Comment CULT NOT INDICATED MDM Medical Decision Making Medical Screen Exam Complete: Yes Emergency Medical Condition: Yes Medical Record Reviewed: Yes Differential Diagnosis DKA, hyperglycemia, electrolyte abnormality, pneumonia Narrative Course 7:32 PM patient's initial blood sugar was 499. He was given 10 units of subcutaneous insulin. Repeat blood sugar is 419. Patient has been repeatedly coming to the emergency room. His hyperglycemia could be secondary to the Medrol Dosepak that he was given including his leukocytosis. Seems like patient is being poorly controlled with his home regimen insulin. I requested the hospitalist to admit the patient in order to control the blood sugar better. She has agreed for observation status for the treatment. Patient was asking for food and I have asked him not to eat anything yet to the sugar is controlled better. I cannot give him fluids since he is already fluid overloaded in terms of his significant pedal edema. Renal function seems worsened in terms of his BUN from prior. Procedures EKG Prior to Arrival: No Diagnosis Primary Impression: Hyperglycemia Additional Impressions: Renal insufficiency Peripheral edema Brittle diabetes Admitting Information Admitting Physician Requests: Observation Soha Ramirez MD Jul 23, 2016 19:34
[2016-07-23] MEDS ORDERED: GLUCAGON 1 MG/ML VIAL OTHER PRN (20:00)
[2016-07-23] MEDS ORDERED: LACTULOSE SYRUP 20 GM/30 ML CUP PO PRN (20:00)
[2016-07-23] MEDS ORDERED: MORPHINE SULFATE 4 MG/ML INJ IV PRN (20:00)
[2016-07-23] MEDS ORDERED: MAGNESIUM HYDROXIDE SUSP 30 ML CUP PO PRN (20:00)
[2016-07-23] MEDS ORDERED: SODIUM CHLORIDE 0.9% FLUSH 10 ML FLUSH IV FLUSH PRN (20:00)
[2016-07-23] MEDS ORDERED: SODIUM CHLOR 0.9% 1000 ML INJ 1,000 ML IV ONE (20:00)
[2016-07-23] MEDS ORDERED: INSULIN DETEMIR 100 UNITS/ML VIAL SQ ONE (20:00)
[2016-07-23] MEDS ORDERED: ONDANSETRON HCL 4 MG/2 ML VIAL IVP PRN (20:00)
[2016-07-23] MEDS ORDERED: ACETAMINOPHEN/HYDROcodone 325 MG/5 MG TAB PO PRN (20:00)
[2016-07-23] MEDS ORDERED: BISACODYL 10 MG SUPP RECTAL PRN (20:00)
[2016-07-23] MEDS ORDERED: SENNOSIDES 8.6 MG TAB PO PRN (20:00)
[2016-07-23] MEDS ORDERED: DEXTROSE 50% IN WATER 50 ML VIAL(D50) IV PRN (20:00)
[2016-07-23] MEDS ORDERED: ACETAMINOPHEN 325 MG TAB PO PRN (20:00)
--- NOTE | 2016-07-23 20:04 | HHI.HP ---
[facility] Service [facility] Primary Care Physician Pepper Ulloa MD Admission Diagnosis hyperglycemia, brittle diabetes, renal insufficiency, peripheral jesus Diagnoses: (1) DM (diabetes mellitus) Diagnosis: Principal (2) CHF (congestive heart failure) Diagnosis: Principal (3) Lymphedema Diagnosis: Principal (4) ALVINO (acute kidney injury) Diagnosis: Principal (5) Hydronephrosis Diagnosis: Principal (6) COPD (chronic obstructive pulmonary disease) Diagnosis: Principal (7) A-fib Diagnosis: Principal Travel History International Travel<30 Days: No Contact w/Intl Traveler <30 Da: No Traveled to Known Affected Are: No History of Present Illness This is a 71-year-old male with a PMH of A. fib on Eliquis, HTN, Hyperlipidemia , Kidney Stones, CHF (Unknown EF), COPD, Lymphedema, CAD and DM who was referred to the ER by his Urologist, Dr. Coppola for evaluation of uncontrolled DM. Pt w/ previous ER presentations in the past week. Initially presented on 07/14/16 after [facility] Exacerbation and was to be admitted, however pt declined. Presented to ER again 07/20/16 for c/o non-productive cough, CHF/COPD exacerbation, s/p Solu- Medrol and DuoNeb, d/c'd home on Medrol Dose-pack and Levaquin for possible PNA. Also noted to have ALVINO and had CT Abd/Pelv w/ moderate right hydronephrosis due to 7-8mm proximal ureter, d/c'd home w/ plans to follow up w / Urologist. Seen in office by Urologist today and noted to have elevated BS at which point referred to ER. Pt denies any symptoms. Does note worsening lower extremity edema and persistent non-productive cough. On arrival, BP 183/ 85, HR 76, O2 sat 94% on RA, Afebrile. WBC 15.0, previously 12.4 on 07/20/16. Creatinine 2.19, previously 2.01 on 07/20/16, 1.03 on 07/14/16. BS 455. Patient reports normal urinary output. UA negative. CXR with no acute findings. S/p 10u Insulin in ER. Review of Systems Except as stated in HPI: all other systems reviewed are Neg ROS: 14 point review of systems otherwise negative. Past Family Social History Past Medical History PMH: A. fib on Eliquis, HTN, Hyperlipidemia, Kidney Stones, CHF (Unknown EF), COPD, Lymphedema, CAD and DM Past Surgical History PAST SURGICAL HISTORY: Cardiac Stent, Bilateral Cataract Surgery, Ureteral Stent Allergies: Coded Allergies: Penicillin (Verified Allergy, Severe, "STIFF A BOARD", 07/14/16) Family History PAST FAMILY HISTORY: Reviewed. No h/o DM or CAD Social History PAST SOCIAL HISTORY: Negative for alcohol, tobacco or drugs. Physical Exam Vital Signs Vital Signs Date Time Temp Pulse Resp B/P Pulse Ox O2 Delivery O2 Flow Rate FiO2 07/23/16 16:48 94 Room Air 07/23/16 16:04 97.8 76 24 183/85 94 Room Air Physical Exam PE: GENERAL: Very pleasant elderly obese white male in no acute distress, sitting in chair at bedside. HEENT: PERRLA, EOMI. No scleral icterus or conjunctival pallor. No lid lag or facial droop. CARDIOVASCULAR: Regular rate and rhythm. No obvious murmurs to auscultation. No chest tenderness to palpation. RESPIRATORY: No obvious rhonchi or wheezing. Clear to auscultation. Breath sounds equal bilaterally. GASTROINTESTINAL: Abdomen obese but soft, non-tender, nondistended. BS normal. MUSCULOSKELETAL: Extremities without clubbing, cyanosis. Chronic lower extremity lymphedema, +2 pitting edema. No obvious deformities. NEUROLOGICAL: Awake, alert and oriented x4. No focal neurologic deficits. Moving both upper and lower extremities spontaneously. Laboratory Laboratory Tests Test 07/23/16 07/23/16 07/23/16 16:54 16:59 17:50 White Blood Count 15.0 Red Blood Count 4.12 Hemoglobin 11.9 Hematocrit 36.1 Mean Corpuscular Volume 87.7 Mean Corpuscular Hemoglobin 28.9 Mean Corpuscular Hemoglobin 33.0 Concent Red Cell Distribution Width 16.1 Platelet Count 222 Mean Platelet Volume 10.5 Neutrophils (%) (Auto) 88.2 Lymphocytes (%) (Auto) 7.9 Monocytes (%) (Auto) 3.8 Eosinophils (%) (Auto) 0.0 Basophils (%) (Auto) 0.1 Neutrophils # (Auto) 13.2 Lymphocytes # (Auto) 1.2 Monocytes # (Auto) 0.6 Eosinophils # (Auto) 0.0 Basophils # (Auto) 0.0 CBC Comment DIFF FINAL Differential Comment Sodium Level 135 Potassium Level 4.3 Chloride Level 96 Carbon Dioxide Level 30.4 Anion Gap 9 Blood Urea Nitrogen 53 Creatinine 2.19 Estimat Glomerular Filtration 30 Rate Random Glucose 455 Calcium Level 8.9 Total Bilirubin 0.2 Aspartate Amino Transf 54 (AST/SGOT) Alanine Aminotransferase 35 (ALT/SGPT) Alkaline Phosphatase 87 Total Protein 7.7 Albumin 3.1 B-Hydroxybutyrate 0.13 Blood Gas Puncture Site RT RADIAL Blood Gas Patient Temperature 98.6 Blood Gas HCO3 27 Blood Gas Base Excess 2.8 Blood Gas Oxygen Saturation 91 Arterial Blood pH 7.43 Arterial Blood Partial 41 Pressure CO2 Arterial Blood Partial 66 Pressure O2 Arterial Blood Oxygen Content 15.4 Arterial Blood 1.4 Carboxyhemoglobin Arterial Blood Methemoglobin 0.6 Blood Gas Hemoglobin 12.0 Oxygen Delivery Device ROOM AIR Blood Gas Inspired Oxygen 21 Urine Color LIGHT-YELLOW Urine Turbidity CLEAR Urine pH 6.5 Urine Specific [place] 1.013 Urine Protein 30 Urine Glucose (UA) 1000 Urine Ketones NEG Urine Occult Blood SMALL Urine Nitrite NEG Urine Bilirubin NEG Urine Urobilinogen LESS THAN 2.0 Urine Leukocyte Esterase NEG Urine RBC 1 Urine WBC 1 Urine Squamous Epithelial <1 Cells Microscopic Urinalysis Comment CULT NOT INDICATED Result Diagram: 07/23/16165307/23/161653 Assessment and Plan Problem List: (1) DM (diabetes mellitus) ICD Code: E11.9 Status: Acute (2) COPD (chronic obstructive pulmonary disease) ICD Code: J44.9 Status: Acute (3) CHF (congestive heart failure) ICD Code: I50.9 Status: Acute (4) Lymphedema ICD Code: I89.0 Status: Acute (5) ALVINO (acute kidney injury) ICD Code: N17.9 Status: Acute (6) Hydronephrosis ICD Code: N13.30 Status: Acute (7) A-fib ICD Code: I48.91 Status: Acute Assessment and Plan A/P: 1. DM: Uncontrolled. Pt reports BS largely uncontrolled at baseline, now worse w/ steroid therapy. On Insulin U-500 at home, no recent change to dosages. Check Hgb A1c, sliding scale w/ Accu-Cheks, monitor BS. 2. COPD: Recent admit to 05/2016 for COPD, found to have A-fib, s/p Steroids /Antibiotics, presented to ER 07/14/16 and again 07/20/16, s/p Solu-Medrol IV and Levaquin, d/c'd on Medrol Dosepak and Levaquin. No wheezing, no SOB at this time. CXR w/ no acute findings, images reviewed by me. Denise thornton, resume home MDI. 3. Lymphedema: Acute on Chronic. Wound Consult for further evaluation. Diuretics, caution w/ renal insufficiency. 4. ALVINO: Creatinine 2.19, previously 2.01 on 07/20/16, 1.03 on 07/14/16. UA negative for UTI. IVF, caution w/ CHF/fluid overload/lower extremity edema. Repeat labs in am. 5. Hydronephrosis: H/o renal stones, follows w/ Dr. Coppola as outpatient, CT Abd/Pelvis 07/20/16 w/ moderate right hydronephrosis and 7-8mm stone, plan is for ureteral stent, however referred to ER by Urologist for control of DM prior to intervention. Monitor I/O. Repeat labs in am. 6. CHF: Unknown EF. Follows w/ Dr. Rhoades as outpatient, no previous Echo on record. Check Eco. Continue diuretics, caution w/ renal insufficiency. 7. A-fib: Controlled. Resume home Eliquis, Diltiazem, Digoxin and ASA. 8. DVT Prophylaxis: Eliquis 9. Social work for DC planning as needed. 10. Case discussed at length with ER physician. Physician Certification 2 Midnight Certification Type: Admission for Inpatient Services Order for Inpatient Services The services are ordered in accordance with Medicare regulations or non- Medicare payer requirements, as applicable. In the case of services not specified as inpatient-only, they are appropriately provided as inpatient services in accordance with the 2-midnight benchmark. Estimated LOS (days): 2 days is the estimated time the patient will need to remain in the hospital, assuming treatment plan goals are met and no additional complications. Post-Hospital Plan: Not yet determined Maya Boggs MD Jul 23, 2016 20:04
[2016-07-23] MEDS ORDERED: FUROSEMIDE 20 MG/2 ML VIAL IV PUSH ONE (20:30)
[2016-07-23] MEDS ORDERED: SODIUM CHLORID 0.9% 500 ML INJ 500 ML IV ONE (20:30)
[2016-07-23 20:45] VITALS: BP 185/82; PULSE 63; RESP 18; TEMP 98.1; O2SAT 100
[2016-07-23] MEDS: DILTIAZEM HCL 30 MG TAB PO SCH (20:52)
[2016-07-23] MEDS: ASPIRIN EC 81 MG TABEC PO SCH (20:53)
[2016-07-23] MEDS: TAMSULOSIN HCL 0.4 MG CAP PO SCH (20:53)
[2016-07-23] MEDS: ATORVASTATIN 40 MG TAB PO SCH (20:53)
[2016-07-23] MEDS: DOCUSATE SODIUM 50 MG/SENNA 8.6 MG TAB PO SCH (20:54)
[2016-07-23] MEDS: GABAPENTIN 300 MG CAP PO SCH (20:54)
[2016-07-23] MEDS: ALBUTEROL SULFATE 90 MCG/ACT HFA 8 GM INHALER INH SCH (21:00)
[2016-07-23] MEDS: INSULIN ASPART SUPPLEMENTAL SCALE SQ SCH (21:00)
[2016-07-23] MEDS ORDERED: NON-FORMULARY DRUG (Ipratropium-Albuterol Inh (Combivent Respimat Inh) 1 PUFF) INH SCH (21:00)
[2016-07-23 21:50] VITALS: BP 160/75; PULSE 76; RESP 18; TEMP 96.4; O2SAT 95
[2016-07-23] MEDS: APIXABAN 2.5 MG TABLET PO SCH (22:50)
[2016-07-23] MEDS: SODIUM CHLORIDE 0.9% FLUSH 10 ML FLUSH IV FLUSH SCH (22:50)
[2016-07-23 23:45] VITALS: PULSE 76; O2SAT 92
[2016-07-24] VITALS (7 sets, daily range): BP systolic 136–168; BP diastolic 55–90; PULSE 51–86; RESP 17–19; TEMP 96.5–97.7; O2SAT 92–98
[2016-07-24] MEDS: INSULIN ASPART SUPPLEMENTAL SCALE SQ SCH ×2 (06:22→11:30)
[2016-07-24] MEDS: DILTIAZEM HCL 30 MG TAB PO SCH ×4 (08:19→21:52)
[2016-07-24] MEDS: GABAPENTIN 300 MG CAP PO SCH ×2 (08:19→21:52)
[2016-07-24] MEDS: DIGOXIN 0.25 MG TAB PO SCH (08:20)
[2016-07-24] MEDS: APIXABAN 2.5 MG TABLET PO SCH ×2 (08:20→21:54)
[2016-07-24] MEDS: TIOTROPIUM BROMIDE 18 MCG INH INH SCH (08:20)
[2016-07-24] MEDS: ALBUTEROL SULFATE 90 MCG/ACT HFA 8 GM INHALER INH SCH ×4 (08:21→21:54)
[2016-07-24] MEDS: DOCUSATE SODIUM 50 MG/SENNA 8.6 MG TAB PO SCH ×2 (08:27→21:00)
[2016-07-24] MEDS: SODIUM CHLORIDE 0.9% FLUSH 10 ML FLUSH IV FLUSH SCH ×2 (08:27→21:54)
[2016-07-24 08:48] LABS: AUTOMATED NEUTROPHIL # 9.6 TH/MM3 (1.8-7.7); HEMATOCRIT 34.3 % (39.0-51.0); HEMO FLAGS DIFF FINAL; LYMPH % 21.8 % (9.0-44.0); LYMPHOCYTE # 2.9 TH/MM3 (1.0-4.8); MEAN CELL VOLUME 87.1 FL (80.0-100.0); MEAN CORPUSCULAR HGB CONC 32.1 % (32.0-36.0); MONO % 6.2 % (0.0-8.0); PLATELET COUNT 202 TH/MM3 (150-450); RED BLOOD COUNT 3.94 MIL/MM3 (4.50-5.90); WHITE BLOOD COUNT 13.3 TH/MM3 (4.0-11.0)
[2016-07-24 09:37] LABS: ALKALINE PHOSPHATASE 60 U/L (45-117); ALT (GPT) 25 U/L (12-78); ANION GAP 9 MEQ/L (5-15); AST (GOT) 34 U/L (15-37); BICARBONATE 28.9 MEQ/L (21.0-32.0); BLOOD UREA NITROGEN 45 MG/DL (7-18); CHLORIDE 103 MEQ/L (98-107); GLOMERULAR FILTRATION RATE 39 ML/MIN (>89); POTASSIUM 3.8 MEQ/L (3.5-5.1); SODIUM (NA) 141 MEQ/L (136-145); TOTAL BILIRUBIN ADULT 0.2 MG/DL (0.2-1.0)
--- NOTE | 2016-07-24 12:25 | ECHRPT ---
Indication: Ischemic cardiomyopathy CONCLUSIONS Normal left ventricular size.wall thickness is normal. The left ventricular systolic function is normal with an estimated ejection fraction in the range of 60-65%. The left atrial size is mildly dilated. The aortic root and proximal ascending aorta are not well visualized. The mitral valve is not well visualized. Mild thickening of the mitral valve leaflets. Aortic valve sclerosis is present. There is estimated mild pulmonary hypertension present (range 40-50 mmHg). The pulmonary valve is not well visualized. The inferior vena cava is dilated. BP: 185 / 82 HR: Rhythm: Sinus MEASUREMENTS (Male / Female) Normal Values Technical Quality:No parasternal images. Technical ly difficult study, Poor 2D ECHO LV Diastolic Diameter PLAX 4.5 cm 4.2 - 5.9 / 3.9 - 5.3 cm LV Systolic Diameter PLAX 2.9 cm IVS Diastolic Thickness 1.3 cm 0.6 - 1.0 / 0.6 - 0.9 cm LVPW Diastolic Thickness 1.3 cm 0.6 - 1.0 / 0.6 - 0.9 cm LV Relative Wall Thickness 0.6 LVOT Diameter 1.9 cm Aortic Root Diameter 3.2 cm LA Systolic Diameter LX 4.2 cm 3.0 - 4.0 / 2.7 - 3.8 cm M-MODE AV Cusp Separation MM 2.5 cm DOPPLER AV Peak Velocity 148.0 cm/s AV Peak Gradient 8.8 mmHg AV Mean Gradient 5.0 mmHg AV Velocity Time Integral 26.7 cm LVOT Peak Velocity 110.0 cm/s LVOT Peak Gradient 4.8 mmHg LVOT Velocity Time Integral 20.3 cm AV Area Cont Eq vti 2.2 cm AV Area Cont Eq pk 2.1 cm Mitral E Point Velocity 89.8 cm/s Mitral A Point Velocity 82.4 cm/s Mitral E to A Ratio 1.1 LV E' Lateral Velocity 6.0 cm/s Mitral E to LV E' Lateral Ratio 15.0 LV E' Septal Velocity 6.8 cm/s Mitral E to LV E' Septal Ratio 13.2 TR Peak Velocity 319.0 cm/s TR Peak Gradient 40.7 mmHg FINDINGS LEFT VENTRICLE Normal left ventricular size.wall thickness is normal. The left ventricular systolic function is normal with an estimated ejection fraction in the range of 60-65%. RIGHT VENTRICLE Normal right ventricular size and systolic function. LEFT ATRIUM The left atrial size is mildly dilated. RIGHT ATRIUM The right atrial size is normal. ATRIAL SEPTUM Normal atrial septal thickness without atrial level shunting by limited color doppler interrogation. AORTA The aortic root and proximal ascending aorta are not well visualized. MITRAL VALVE The mitral valve is not well visualized. Mild thickening of the mitral valve leaflets. AORTIC VALVE Trileaflet aortic valve. Aortic valve sclerosis is present. TRICUSPID VALVE Structurally normal tricuspid valve. There is estimated mild pulmonary hypertension present (range 40-50 mmHg). There is trace tricuspid valve regurgitation. PULMONARY VALVE The pulmonary valve is not well visualized. VESSELS The inferior vena cava is dilated. PERICARDIUM No pericardial effusion. Eddie Mercado MD (Electronically Signed) Final Date:24 July 2016 12:25
[2016-07-24 12:36] LABS: HEMOGLOBIN A1a 1.1 %; HEMOGLOBIN A1b 1.4 %; HEMOGLOBIN P3 5.7 %
[2016-07-24] MEDS ORDERED: DEXTROSE 50% IN WATER 50 ML VIAL(D50) IV PRN (15:45)
[2016-07-24] MEDS ORDERED: GLUCAGON 1 MG/ML VIAL OTHER PRN (15:45)
[2016-07-24] MEDS: INSULIN NovoLIN REGULAR SUPPLEMENTAL SCALE SQ SCH ×2 (16:00→21:53)
[2016-07-24] MEDS ORDERED: LEVOFLOXACIN 500 MG TAB PO SCH (16:15)
--- NOTE | 2016-07-24 16:49 | HHI.PR ---
Subjective Remarks Patient was walking in the hallway but he stated he is short of breath Having significant leg swelling +3 stated he has compressive device at home that he uses usually but he cannot use MATTIE hose because he cannot put it in or take it off No fever or chills no chest pain Objective Vitals Vital Signs Date Time Temp Pulse Resp B/P Pulse Ox O2 Delivery O2 Flow Rate FiO2 07/24/16 11:45 97.2 86 19 161/73 93 07/24/16 07:51 97.1 69 19 163/90 95 07/24/16 04:15 97.7 56 17 164/74 93 07/24/16 03:21 Nasal Cannula 2.00 07/24/16 01:55 96.7 51 18 136/55 98 07/23/16 23:45 76 92 07/23/16 21:50 96.4 76 18 160/75 95 07/23/16 21:12 Room Air 07/23/16 20:45 98.1 63 18 185/82 100 Room Air 07/23/16 16:48 94 Room Air I/O 07/23/16 07/23/16 07/23/16 07/24/16 07/24/16 07/24/16 07:00 15:00 23:00 07:00 15:00 23:00 Intake Total 240 ml Balance 240 ml Intake Oral 240 ml # Voids 2 # Bowel Movements 0 Result Diagram: 07/24/16 0747 07/24/16 0747 Imaging Last Impressions Chest X-Ray 07/23/16 1638 Signed Impressions: Service Date/Time: Saturday, July 23, 2016 17:18 - CONCLUSION: No acute disease. Shane Kennedy MD FACR Objective Remarks GENERAL: Well nourished/well developed morbidly obese patient in no apparent distress CARDIOVASCULAR: Regular rate and rhythm without murmurs, gallops or rubs. RESPIRATORY: Fair entry no significant crackles GASTROINTESTINAL: Abdomen soft, non-tender, nondistended. Normal active bowel sounds MUSCULOSKELETAL: Extremities without clubbing, cyanosis, but with2+ pitting edema. NEURO: Alert & Oriented x4 to person, place, time, and situation. Moves all ext x4 A/P Problem List: (1) DM (diabetes mellitus) ICD Code: E11.9 Status: Acute (2) COPD (chronic obstructive pulmonary disease) ICD Code: J44.9 Status: Acute (3) CHF (congestive heart failure) ICD Code: I50.9 Status: Acute (4) Lymphedema ICD Code: I89.0 Status: Acute (5) ALVINO (acute kidney injury) ICD Code: N17.9 Status: Acute (6) Hydronephrosis ICD Code: N13.30 Status: Acute (7) A-fib ICD Code: I48.91 Status: Acute Assessment and Plan 1. Uncontrolled DM: Pt reports BS largely uncontrolled at baseline, now worse w / steroid therapy. On Insulin U-500 at home, no recent change to dosages. Hgb A1c 8.4, patient received 10 units of Levemir last night but fasting blood glucose still high, will increase this to 15 daily at bedtime, and tendon a.m., continue sliding scale w/ Accu-Cheks, monitor BS. 2. COPD: Recent admit to 05/2016 for COPD, found to have A-fib, s/p Steroids /Antibiotics, presented to ER 07/14/16 and again 07/20/16, s/p Solu-Medrol IV and Levaquin, No wheezing, no SOB at this time. CXR w/ no acute findings, DuoNeb prn, resume home MDI. 3. Lymphedema: Acute on Chronic. Wound Consult for further evaluation. Resume Diuretics, since creatinine improved 4. ALVINO: Improved, Creatinine 2.19 dropped to 1.7, previously 2.01 on 07/20/16, 1.03 on 07/14/16. UA negative for UTI. DC fluid resume Bumex lab in a.m. 5. Hydronephrosis: H/o renal stones, follows w/ Dr. Coppola as outpatient, CT Abd/Pelvis 07/20/16 w/ moderate right hydronephrosis and 7-8mm stone, plan is for ureteral stent, however referred to ER by Urologist for control of DM prior to intervention. Monitor I/O. Repeat labs in am. 6. CHF: Unknown EF. Follows w/ Dr. Rhoades as outpatient, no previous Echo on record. Echo ordered reviewed personally by me showing normal EF 60% with sclerotic aorta and moderately dilated left atrium. Continue diuretics, caution w/ renal insufficiency. 7. A-fib: Controlled. Resume home Eliquis, Diltiazem, Digoxin and ASA. 8. Uncontrolled hypertension: With his history of CHF I will place him on lisinopril since is one of the most important medication that decreases mortality and protect against worsening deterioration of the kidney and the heart 9. DVT Prophylaxis: Sofia Crow MD Jul 24, 2016 16:49
[2016-07-24] MEDS: LISINOPRIL 10 MG TAB PO SCH (17:14)
--- NOTE | 2016-07-24 17:22 | MB ---
cc: BRAYAN ESTRADA MD, ALAN S. M.D. HORENSTEIN, JOSHUA A. MD DATE OF CONSULTATION 07/24/16 I have reviewed outside and hospital records. HISTORY OF PRESENT ILLNESS The patient is a 71-year-old white man followed by Dr. Rhoades. After review of the chart, I am certainly not sure why cardiology consultation has been obtained. The patient has significant obstructive lung disease and chronic dyspnea on exertion with multiple emergency room visits. Recent emergency room visits have shown stable EKG with very low BNP levels consistent with his COPD. The patient was apparently sent by his urologist for evaluation because of kidney stones, hydronephrosis and diabetes out of control. The patient states his diabetes has been certainly worse and off the scale. He notes no change in his chronic dyspnea on exertion. He also has chronic pedal edema, which is unchanged after his vascular procedures. He notes no chest pain, palpitations, bleeding. PAST MEDICAL HISTORY 1. Supposed PCI of coronary disease in the past 2. Chronic kidney disease III 3. COPD, 4. Diabetes, 5. Diabetic nephropathy and retinopathy 6. Hypertension, 7. Hyperlipidemia, 8. Chronic lymphedema 9. Morbid obesity 10. Kidney stone 11. Sleep apnea 12. Peripheral vascular disease with bilateral revascularization procedures 13. Paroxysmal atrial fibrillation. 14. Bilateral cataracts 15. Ureteral stents. ALLERGIES PENICILLIN BACTRIM CLINDAMYCIN FAMILY HISTORY/SOCIAL HISTORY Unremarkable for premature coronary artery disease. He is and former smoker and drinker. REVIEW OF SYSTEMS Remarkable for the following: Shortness of breath, chronic edema, vision and hearing issues, weight gain, urination issues. CARDIOLOGY STUDIES EKG was not done this admission. LABORATORY FINDINGS Potassium 3.8, creatinine 1.72 which is down from 2.19 yesterday. Glucose 455 on admission and 252 today. Liver functions normal. CBC with mild anemia and an elevated white count. MEDICATIONS Medication list reviewed. IMAGING STUDIES Chest x-ray yesterday with no active disease. PHYSICAL EXAMINATION GENERAL: He is significantly overweight. VITAL SIGNS: He is afebrile. Vital signs stable with mild hypertension. HEENT: There are no xanthelasma and oral pharyngeal mucosa normal. CHEST: With markedly decreased breath sounds and prolonged expiratory phase. JVD normal. CARDIAC: S1-S2 no murmurs or gallops. ABDOMEN: Abdomen is obese but benign. EXTREMITIES: 1-2+ edema (right leg greater than left) which the patient states is stable. There are stasis changes in the right lower extremity. Pulses carotids without bruits. Radials are 1+. Femorals 1+ deep without bruits. Pedal is 1+. He is not ambulated ASSESSMENT 1. Diabetes out of control. 2. Hypertension 3. Hyperlipidemia. 4. Paroxysmal atrial fibrillation. 5. Chronic kidney disease 6. Coronary artery disease 7. Peripheral vascular disease. 8. Lymphedema. 9. Right bundle-branch block with left anterior fascicular block. RECOMMENDATIONS The patient appears stable from a cardiac standpoint and clearly his low BNP levels recently go against congestive heart failure. I would recommend the followin. Continue home medications including anticoagulation. 2. Echocardiogram is pending. 3. COPD, diabetes and risk factor modification per primary service. The patient will need to follow up with primary care physician and Dr. Rhoades. I will not follow but be available if needed. MD JEANNINE Skinner/ /9:46 AM /4:32 PM
[2016-07-24] MEDS ORDERED: INSULIN DETEMIR 100 UNITS/ML VIAL SQ SCH (21:00)
[2016-07-24] MEDS: ATORVASTATIN 40 MG TAB PO SCH (21:51)
[2016-07-24] MEDS: TAMSULOSIN HCL 0.4 MG CAP PO SCH (21:51)
[2016-07-24] MEDS: ASPIRIN EC 81 MG TABEC PO SCH (21:52)
[2016-07-24] MEDS: BUMETANIDE 1 MG TAB PO SCH (21:54)
[2016-07-24] MEDS ORDERED: INSULIN HUMAN REGULAR 1,000 UNITS/10 ML VIAL IV PUSH ONE (23:45)
[2016-07-25 03:52] VITALS: BP_SYST 135; BP_SYST 149; BP_DIAS 59; BP_DIAS 69; PULSE 68; RESP 18; TEMP 96.7; O2SAT 95
[2016-07-25] MEDS: INSULIN NovoLIN REGULAR SUPPLEMENTAL SCALE SQ SCH ×4 (07:16→21:01)
[2016-07-25 07:21] LABS: BICARBONATE 28.3 MEQ/L (21.0-32.0); POTASSIUM 3.9 MEQ/L (3.5-5.1)
[2016-07-25 07:57] VITALS: BP 159/67; PULSE 61; RESP 18; TEMP 96.6; O2SAT 94
[2016-07-25] MEDS ORDERED: INSULIN DETEMIR 100 UNITS/ML VIAL SQ SCH ×3 (08:00→21:00)
[2016-07-25] MEDS: DOCUSATE SODIUM 50 MG/SENNA 8.6 MG TAB PO SCH ×2 (09:00→20:51)
[2016-07-25] MEDS: GABAPENTIN 300 MG CAP PO SCH ×2 (09:00→20:50)
[2016-07-25] MEDS: ALBUTEROL SULFATE 90 MCG/ACT HFA 8 GM INHALER INH SCH ×4 (10:10→20:49)
[2016-07-25] MEDS: TIOTROPIUM BROMIDE 18 MCG INH INH SCH (10:10)
[2016-07-25] MEDS: APIXABAN 2.5 MG TABLET PO SCH ×2 (10:11→20:50)
[2016-07-25] MEDS: DILTIAZEM HCL 30 MG TAB PO SCH ×4 (10:11→20:50)
[2016-07-25] MEDS: LISINOPRIL 10 MG TAB PO SCH (10:11)
[2016-07-25] MEDS: DIGOXIN 0.25 MG TAB PO SCH (10:11)
[2016-07-25] MEDS: SODIUM CHLORIDE 0.9% FLUSH 10 ML FLUSH IV FLUSH SCH ×2 (10:12→20:49)
[2016-07-25] MEDS: LEVOFLOXACIN 250 MG TAB PO SCH (10:12)
[2016-07-25] MEDS: BUMETANIDE 1 MG TAB PO SCH ×2 (10:12→20:51)
[2016-07-25 11:13] VITALS: BP 149/59; PULSE 80; RESP 18; TEMP 96; O2SAT 93
[2016-07-25] MEDS ORDERED: DEXTROSE 50% IN WATER 50 ML VIAL(D50) IV PRN (13:15)
[2016-07-25] MEDS ORDERED: GLUCAGON 1 MG/ML VIAL OTHER PRN (13:15)
[2016-07-25 16:12] VITALS: BP 169/69; PULSE 74; RESP 18; TEMP 96.8; O2SAT 94
--- NOTE | 2016-07-25 17:08 | HHI.PR ---
Subjective Remarks Patient sitting on the edge of the bed, he refused a SCD as per the nurse but he accepts when I talked to him Blood sugar still uncontrolled blood glucose in the 300 we will increase his Levemir to 25 units in the evening and 20 in the morning and upgrade ISS 2 medium level and increase lisinopril to 20 mg daily Objective Vitals Vital Signs Date Time Temp Pulse Resp B/P Pulse Ox O2 Delivery O2 Flow Rate FiO2 07/25/16 07:57 96.6 61 18 159/67 94 07/25/16 03:52 96.7 68 18 149/69 95 07/24/16 23:57 96.7 79 19 168/74 92 07/24/16 20:13 97.0 80 19 144/66 92 07/24/16 19:12 Room Air 07/24/16 19:10 Room Air I/O 07/24/16 07/24/16 07/24/16 07/25/16 07/25/16 07/25/16 07:00 15:00 23:00 07:00 15:00 23:00 Intake Total 240 ml 720 ml 360 ml 360 ml Balance 240 ml 720 ml 360 ml 360 ml Intake Oral 240 ml 720 ml 360 ml 360 ml # Voids 2 2 3 2 # Bowel Movements 0 1 1 0 Result Diagram: 07/24/16 0747 07/25/16 0552 Objective Remarks GENERAL: Well nourished/well developed morbidly obese patient in no apparent distress CARDIOVASCULAR: Regular rate and rhythm without murmurs, gallops or rubs. RESPIRATORY: Fair entry no significant crackles GASTROINTESTINAL: Abdomen soft, non-tender, nondistended. Normal active bowel sounds MUSCULOSKELETAL: Extremities without clubbing, cyanosis, but with2+ pitting edema. NEURO: Alert & Oriented x4 to person, place, time, and situation. Moves all ext x4 A/P Problem List: (1) DM (diabetes mellitus) ICD Code: E11.9 Status: Acute (2) COPD (chronic obstructive pulmonary disease) ICD Code: J44.9 Status: Acute (3) CHF (congestive heart failure) ICD Code: I50.9 Status: Acute (4) Lymphedema ICD Code: I89.0 Status: Acute (5) ALVINO (acute kidney injury) ICD Code: N17.9 Status: Acute (6) Hydronephrosis ICD Code: N13.30 Status: Acute (7) A-fib ICD Code: I48.91 Status: Acute Assessment and Plan 1. Uncontrolled DM: Pt reports BS largely uncontrolled at baseline, now worse w / steroid therapy. On Insulin U-500 at home, no recent change to dosages. Hgb A1c 8.4, increase Levemir to 25 daily at bedtime 20 every morning, upgrade sliding scale to medium level w/ Accu-Cheks, monitor BS. 2. COPD: Recent admit to 05/2016 for COPD, found to have A-fib, s/p Steroids /Antibiotics, presented to ER 07/14/16 and again 07/20/16, s/p Solu-Medrol IV and Levaquin, No wheezing, no SOB at this time. CXR w/ no acute findings, DuoNeb prn, resume home MDI. 3. Lymphedema: Acute on Chronic. Wound Consult for further evaluation. Resume Diuretics, since creatinine improved 4. ALVINO: Improved, Creatinine 2.19 dropped to 1.7, previously 2.01 on 07/20/16, 1.03 on 07/14/16. UA negative for UTI. DC fluid resume Bumex lab in a.m. 5. Hydronephrosis: H/o renal stones, follows w/ Dr. Coppola as outpatient, CT Abd/Pelvis 07/20/16 w/ moderate right hydronephrosis and 7-8mm stone, plan is for ureteral stent, however referred to ER by Urologist for control of DM prior to intervention. Monitor I/O. Repeat labs in am. 6. CHF: Unknown EF. Follows w/ Dr. Rhoades as outpatient, no previous Echo on record. Echo ordered reviewed personally by me showing normal EF 60% with sclerotic aorta and moderately dilated left atrium. Continue diuretics, caution w/ renal insufficiency. 7. A-fib: Controlled. Resume home Eliquis, Diltiazem, Digoxin and ASA. 8. Uncontrolled hypertension: Still on optimize increase this and the present 20 mg 9. DVT Prophylaxis: Sofia Crow MD Jul 25, 2016 17:08
[2016-07-25 20:00] VITALS: PULSE 84
[2016-07-25] MEDS: TAMSULOSIN HCL 0.4 MG CAP PO SCH (20:50)
[2016-07-25] MEDS: ATORVASTATIN 40 MG TAB PO SCH (20:50)
[2016-07-25] MEDS: ASPIRIN EC 81 MG TABEC PO SCH (20:50)
[2016-07-25 20:55] VITALS: BP 166/68; PULSE 88; RESP 18; TEMP 97.1; O2SAT 94
[2016-07-26] VITALS (8 sets, daily range): BP systolic 122–183; BP diastolic 57–76; PULSE 60–88; RESP 17–19; TEMP 96.2–98.2; O2SAT 94–95
[2016-07-26] MEDS: ENALAPRILAT 1.25 MG/ML VIAL IV PUSH PRN ×2 (04:43→20:38)
[2016-07-26] MEDS: INSULIN NovoLIN REGULAR SUPPLEMENTAL SCALE SQ SCH ×4 (06:31→20:33)
[2016-07-26] MEDS: BUMETANIDE 1 MG TAB PO SCH ×2 (08:56→20:31)
[2016-07-26] MEDS: DIGOXIN 0.25 MG TAB PO SCH (08:56)
[2016-07-26] MEDS: DILTIAZEM HCL 30 MG TAB PO SCH ×4 (08:56→20:31)
[2016-07-26] MEDS: LEVOFLOXACIN 250 MG TAB PO SCH (08:56)
[2016-07-26] MEDS: LISINOPRIL 20 MG TAB PO SCH (08:57)
[2016-07-26] MEDS: TIOTROPIUM BROMIDE 18 MCG INH INH SCH (08:57)
[2016-07-26] MEDS: APIXABAN 2.5 MG TABLET PO SCH ×2 (08:57→20:31)
[2016-07-26] MEDS: ALBUTEROL SULFATE 90 MCG/ACT HFA 8 GM INHALER INH SCH ×4 (08:58→20:30)
[2016-07-26] MEDS: DOCUSATE SODIUM 50 MG/SENNA 8.6 MG TAB PO SCH ×2 (09:00→20:30)
[2016-07-26] MEDS: GABAPENTIN 300 MG CAP PO SCH ×2 (09:00→20:31)
[2016-07-26] MEDS: SODIUM CHLORIDE 0.9% FLUSH 10 ML FLUSH IV FLUSH SCH ×2 (09:00→20:18)
[2016-07-26] MEDS ORDERED: INSULIN DETEMIR 100 UNITS/ML VIAL SQ SCH (09:00)
--- NOTE | 2016-07-26 15:22 | HHI.PR ---
Subjective Remarks patient as usual sitting at the edge of the bed dangling his legs, obviously noncompliant despite many times advising him to keep his leg elevated while sitting blood pressure still significantly uncontrolled BG at 300-400 despite increasing his Levemir yesterday we will increase again to 35 units twice a day and add pre-meal Novolin Objective Vitals Vital Signs Date Time Temp Pulse Resp B/P Pulse Ox O2 Delivery O2 Flow Rate FiO2 07/26/16 11:14 96.8 88 18 122/57 95 07/26/16 08:52 Room Air 07/26/16 07:25 96.9 60 18 162/72 95 07/26/16 04:55 96.2 68 18 165/76 94 07/26/16 00:38 98.2 75 18 163/75 94 07/25/16 20:55 97.1 88 18 166/68 94 07/25/16 20:00 84 07/25/16 20:00 94 Room Air 07/25/16 16:12 96.8 74 18 169/69 94 I/O 07/25/16 07/25/16 07/25/16 07/26/16 07/26/16 07/26/16 07:00 15:00 23:00 07:00 15:00 23:00 Intake Total 360 ml 720 ml 240 ml 240 ml Balance 360 ml 720 ml 240 ml 240 ml Intake Oral 360 ml 720 ml 240 ml 240 ml # Voids 2 2 2 2 # Bowel Movements 0 0 0 0 Result Diagram: 07/24/16 0747 07/25/16 0552 Objective Remarks GENERAL: Well nourished/well developed morbidly obese patient in no apparent distress CARDIOVASCULAR: Regular rate and rhythm without murmurs, gallops or rubs. RESPIRATORY: Fair entry no significant crackles GASTROINTESTINAL: Abdomen soft, non-tender, nondistended. Normal active bowel sounds MUSCULOSKELETAL: Extremities without clubbing, cyanosis, but with2+ pitting edema. NEURO: Alert & Oriented x4 to person, place, time, and situation. Moves all ext x4 A/P Problem List: (1) DM (diabetes mellitus) ICD Code: E11.9 Status: Acute (2) COPD (chronic obstructive pulmonary disease) ICD Code: J44.9 Status: Acute (3) CHF (congestive heart failure) ICD Code: I50.9 Status: Acute (4) Lymphedema ICD Code: I89.0 Status: Acute (5) ALVINO (acute kidney injury) ICD Code: N17.9 Status: Acute (6) Hydronephrosis ICD Code: N13.30 Status: Acute (7) A-fib ICD Code: I48.91 Status: Acute Assessment and Plan 1. Uncontrolled DM: Pt reports BS largely uncontrolled at baseline, now worse w / steroid therapy. On Insulin U-500 at home, no recent change to dosages. Hgb A1c 8.4, increase Levemir to again to 35 bid, add 3 units pre-meal of Novolin,upgrade sliding scale to medium level w/ Accu-Cheks, monitor BS. 2. COPD: Recent admit to 05/2016 for COPD, found to have A-fib, s/p Steroids /Antibiotics, presented to ER 07/14/16 and again 07/20/16, s/p Solu-Medrol IV and Levaquin, No wheezing, no SOB at this time. CXR w/ no acute findings, DuoNeb prn, resume home MDI. 3. Lymphedema: Acute on Chronic. Wound Consult for further evaluation. Resume Diuretics, since creatinine improved 4. ALVINO: Improved, Creatinine 2.19 dropped to 1.7, previously 2.01 on 07/20/16, 1.03 on 07/14/16. UA negative for UTI. DC fluid resume Bumex lab in a.m. 5. Hydronephrosis: H/o renal stones, follows w/ Dr. Coppola as outpatient, CT Abd/Pelvis 07/20/16 w/ moderate right hydronephrosis and 7-8mm stone, plan is for ureteral stent, however referred to ER by Urologist for control of DM prior to intervention. Monitor I/O. Repeat labs in am. 6. CHF: Unknown EF. Follows w/ Dr. Rhoades as outpatient, no previous Echo on record. Echo ordered reviewed personally by me showing normal EF 60% with sclerotic aorta and moderately dilated left atrium. Continue diuretics, caution w/ renal insufficiency. 7. A-fib: Controlled. Resume home Eliquis, Diltiazem, Digoxin and ASA. 8. Uncontrolled hypertension: improved continue lisinopril 9. DVT Prophylaxis: Sofia Crow MD Jul 26, 2016 15:22
[2016-07-26] MEDS: INSULIN HUMAN REGULAR 1,000 UNITS/10 ML VIAL SQ SCH (17:00)
[2016-07-26] MEDS: ASPIRIN EC 81 MG TABEC PO SCH (20:31)
[2016-07-26] MEDS: TAMSULOSIN HCL 0.4 MG CAP PO SCH (20:31)
[2016-07-26] MEDS: ATORVASTATIN 40 MG TAB PO SCH (20:31)
[2016-07-26] MEDS: INSULIN DETEMIR 100 UNITS/ML VIAL SQ SCH (20:37)
[2016-07-27 04:00] VITALS: BP 144/64; PULSE 65; RESP 18; TEMP 98.5; O2SAT 95
[2016-07-27 04:58] LABS: AUTOMATED NEUTROPHIL # 11.2 TH/MM3 (1.8-7.7); BASOPHIL # 0.1 TH/MM3 (0-0.2); BASOPHIL % 0.7 % (0.0-2.0); EOSINOPHIL # 0.2 TH/MM3 (0-0.4); HEMATOCRIT 34.5 % (39.0-51.0); HEMO FLAGS DIFF FINAL; LYMPH % 20.7 % (9.0-44.0); LYMPHOCYTE # 3.2 TH/MM3 (1.0-4.8); MEAN CELL VOLUME 87.8 FL (80.0-100.0); MEAN CORPUSCULAR HEMOGLOBIN 28.1 PG (27.0-34.0); MONO % 6.4 % (0.0-8.0); NEUT % 71.2 % (16.0-70.0); PLATELET COUNT 197 TH/MM3 (150-450); RED BLOOD COUNT 3.93 MIL/MM3 (4.50-5.90); RED CELL DISTRIBUTION WIDTH 16.2 % (11.6-17.2); WHITE BLOOD COUNT 15.7 TH/MM3 (4.0-11.0)
[2016-07-27 05:01] LABS: BICARBONATE 30.1 MEQ/L (21.0-32.0)
[2016-07-27] MEDS: INSULIN NovoLIN REGULAR SUPPLEMENTAL SCALE SQ SCH ×4 (06:04→21:04)
[2016-07-27] MEDS: INSULIN HUMAN REGULAR 1,000 UNITS/10 ML VIAL SQ SCH ×3 (06:06→17:28)
[2016-07-27 07:23] VITALS: BP 168/74; PULSE 73; RESP 18; TEMP 97.1; O2SAT 94
[2016-07-27] MEDS: APIXABAN 2.5 MG TABLET PO SCH (08:36)
[2016-07-27] MEDS: DOCUSATE SODIUM 50 MG/SENNA 8.6 MG TAB PO SCH ×2 (08:37→21:02)
[2016-07-27] MEDS: DILTIAZEM HCL 30 MG TAB PO SCH ×4 (08:37→21:02)
[2016-07-27] MEDS: BUMETANIDE 1 MG TAB PO SCH ×2 (08:37→21:02)
[2016-07-27] MEDS: LEVOFLOXACIN 250 MG TAB PO SCH (08:37)
[2016-07-27] MEDS: DIGOXIN 0.25 MG TAB PO SCH (08:37)
[2016-07-27] MEDS: LISINOPRIL 20 MG TAB PO SCH (08:37)
[2016-07-27] MEDS: ALBUTEROL SULFATE 90 MCG/ACT HFA 8 GM INHALER INH SCH ×4 (08:38→21:06)
[2016-07-27] MEDS: TIOTROPIUM BROMIDE 18 MCG INH INH SCH (08:38)
[2016-07-27] MEDS: SODIUM CHLORIDE 0.9% FLUSH 10 ML FLUSH IV FLUSH SCH ×2 (08:39→21:04)
[2016-07-27] MEDS: GABAPENTIN 300 MG CAP PO SCH ×2 (08:39→21:02)
[2016-07-27] MEDS: INSULIN DETEMIR 100 UNITS/ML VIAL SQ SCH ×2 (08:40→21:03)
--- NOTE | 2016-07-27 09:25 | PD.WCN.NOT ---
Wound Consult Description: Late entry from 07/26/2016 1100: Patient seen on [address] [place] [address] for evaluation of lymphedema wound management. Patient sitting at bedside for assessment. No open areas noted to bilateral lower extremities. Bilateral lower extremities are edematous with hemosiderin staining noted. Communicated with: Sonia WALSHcharge machine operator nurse, RN [address] and Doctor Blake Recommendation: Please elevate bilateral lower extremities while patient is in bed or chair. May need outpatient lymphedema therapy,by certified lymphedema therapist. This service is not provided inpatient. Sandra Ramirez [facility] Jul 27, 2016 09:25
--- NOTE | 2016-07-27 10:24 | HHI.PR ---
Subjective Remarks complains of flank pain "killing me" no hematuria, dysuria or urgency no nausea vomiting or diarrhea Objective Vitals Vital Signs Date Time Temp Pulse Resp B/P Pulse Ox O2 Delivery O2 Flow Rate FiO2 07/27/16 07:23 97.1 73 18 168/74 94 07/27/16 04:00 98.5 65 18 144/64 95 07/26/16 23:57 97.2 66 17 162/74 95 07/26/16 21:00 80 07/26/16 19:00 98.0 77 19 183/71 95 07/26/16 16:14 97.9 82 18 160/67 95 07/26/16 11:14 96.8 88 18 122/57 95 I/O 07/26/16 07/26/16 07/26/16 07/27/16 07/27/16 07/27/16 07:00 15:00 23:00 07:00 15:00 23:00 Intake Total 240 ml 660 ml 480 ml 240 ml Output Total 850 ml Balance 240 ml 660 ml -370 ml 240 ml Intake Oral 240 ml 660 ml 480 ml 240 ml Output Urine Total 850 ml # Voids 2 3 2 # Bowel Movements 0 0 0 0 Result Diagram: 07/27/16 0420 07/27/16 0420 Imaging Last Impressions Chest X-Ray 07/23/16 1638 Signed Impressions: Service Date/Time: Saturday, July 23, 2016 17:18 - CONCLUSION: No acute disease. Shane Kennedy MD FACR Objective Remarks awake and aletr, NAD anicteric lungs- decreased breath sounds, no rales or wheezes regular rhythm abdomen soft, nontender extremities ++ edema A/P Problem List: (1) DM (diabetes mellitus) ICD Code: E11.9 Status: Acute (2) COPD (chronic obstructive pulmonary disease) ICD Code: J44.9 Status: Acute (3) CHF (congestive heart failure) ICD Code: I50.9 Status: Acute (4) Lymphedema ICD Code: I89.0 Status: Acute (5) ALVINO (acute kidney injury) ICD Code: N17.9 Status: Acute (6) Hydronephrosis ICD Code: N13.30 Status: Acute (7) A-fib ICD Code: I48.91 Status: Acute Assessment and Plan 71 years sold male Right ureteral stone with right Hydronephrosis: H/o renal stones, follows w/ Dr. Coppola as outpatient, CT Abd/Pelvis 07/20/16 w/ moderate right hydronephrosis and 7-8mm stone, plan is for ureteral stent, however referred to ER by Urologist for control of DM prior to intervention. Monitor I/O. Repeat labs in am. ALVINO: - creatinine up again- obstructive component., previously 2.01 on 07/20/16, 1.03 on 07/14/16. UA negative for UTI. Uncontrolled DM: HgbA1C 8.4. On Insulin U-500 at home, no recent change to dosages. Continue current regimen and adjust dose COPD: in remission Recent admit to 05/2016 for COPD, found to have A-fib, s/ p Steroids/Antibiotics, presented to ER 07/14/16 and again 07/20/16, s/p Solu- Medrol IV and Levaquin, No wheezing, no SOB at this time. CXR w/ no acute findings, DuoNeb prn, resume home MDI. Lymphedema: Acute on Chronic. Wound Consult for further evaluation. Resume Diuretics, since creatinine improved ff BMP CHF: Unknown EF. Follows w/ Dr. Rhoades as outpatient, no previous Echo on record. showing normal EF 60% with sclerotic aorta and moderately dilated left atrium. Continue diuretics, caution w/ renal insufficiency. History of A-fib: Controlled.- now in SR Resume home Eliquis, Diltiazem, Digoxin and ASA. . will hold eliquis for 2-3 days if procedure will be scheduled Uncontrolled hypertension: - continue to adjust . Lisinopril up to 20 mg DVT Prophylaxis: Eliquis- hold for now - hopefully procedure will get done Jabier Lozano MD Jul 27, 2016 10:24 Jabier Lozano MD Jul 27, 2016 10:24
[2016-07-27 12:00] VITALS: BP 148/70; PULSE 82; RESP 18; TEMP 98.1; O2SAT 93
--- NOTE | 2016-07-27 14:02 | MB ---
cc: JUDI RIVERAWN DATE OF CONSULTATION: 07/27/2016 HISTORY OF PRESENT ILLNESS Mr. Andres is a 71-year-old male with multiple medical problems including atrial fibrillation, hypertension, hyperlipidemia, history of nephrolithiasis, CHF, COPD, lymphedema, coronary artery disease and diabetes, who was sent by Dr. Coppola for admission of uncontrolled diabetes. Apparently he had a stent placed for 4 months in the past which was recently removed. A CT scan on admission demonstrated mild to moderate right hydronephrosis and a 7-8 mm stone. He presently complains of significant right flank pain and does not wish to have a repeat stent inserted. I impressed the importance of having a stent placed given his diabetes has been difficult to control and release of the obstruction may allow more reasonable diabetic control to occur. His creatinine on admission was 2.19 and presently is 1.9. He still has a white count of 15,000, but denies any fevers or chills. PAST MEDICAL HISTORY 1. Atrial fibrillation. 1. Hypertension. 2. Hyperlipidemia. 3. Nephrolithiasis. 4. CHF. 5. COPD. 6. Lymphedema. 7. Coronary artery disease. 8. Diabetes. PAST SURGICAL HISTORY 1. Cardiac stent placement. 2. Bilateral cataract surgery. 3. Ureteral stent. 4. Lithotripsy. ALLERGIES PENICILLIN. FAMILY HISTORY Denies any heart disease or diabetes. SOCIAL HISTORY Negative for alcohol, tobacco or drugs. REVIEW OF SYSTEMS A 12-point review of systems was performed and negative except per the HPI. PHYSICAL EXAMINATION VITAL SIGNS: His present vital signs today - temperature 97.1, heart rate 73, respiratory rate 18, blood pressure 168/74, pulse ox 94%. GENERAL: He is an obese 71-year-old male in no acute distress. HEENT: Normocephalic, atraumatic. Pupils equal, round and react to light. Extraocular movements intact. NECK: Supple. HEART: Regular rate and rhythm. LUNGS: Clear. ABDOMEN: Soft. BACK: There is right CVA tenderness. : Normal phallus. Testes descended. EXTREMITIES: 1-2+ edema. MUSCULOSKELETAL: Neck symmetrical, midline. PSYCHIATRIC: No mood disorders are noted. He is awake and alert, not confused. NEUROLOGIC: Cranial nerves II-XII are intact. SKIN: No lesions are noted. LABORATORY VALUES White count 15.7, hemoglobin 11.1, hematocrit 34.5, platelets 197. Sodium 142, potassium 4.0, chloride 105, CO2 30, BUN 45, creatinine 1.9, glucose 271. Urinalysis on admission shows glucose of 1000, one red cell and one white cell. IMAGING CT scan imaging report demonstrates moderate to mild hydronephrosis on the right secondary to proximal ureteral calculus measuring 7-8 mm in size. ASSESSMENT A 71-year-old male with findings of a 7-8 mm calculus in the proximal right ureter causing obstruction. PLAN Will plan for cystoscopy with right double-J stent in the a.m. The risks and benefits discussed and he is willing to proceed. He understands that further treatment will be needed to remove the stone in the future, either by ureteroscopy or lithotripsy. Thank you for the consult and for allowing me to participate in the care of this patient. Michael FONSECA /1:39 PM /1:55 PM
[2016-07-27 15:45] VITALS: BP 152/67; PULSE 74; RESP 18; TEMP 98; O2SAT 95
[2016-07-27 20:00] VITALS: BP 156/67; PULSE 79; RESP 20; TEMP 97.6; O2SAT 94
[2016-07-27] MEDS: TAMSULOSIN HCL 0.4 MG CAP PO SCH (21:02)
[2016-07-27] MEDS: ASPIRIN EC 81 MG TABEC PO SCH (21:02)
[2016-07-27] MEDS: ATORVASTATIN 40 MG TAB PO SCH (21:02)
[2016-07-27] MEDS ORDERED: LACTATED RINGER'S 1000 ML IV PRN (23:15)
[2016-07-27] MEDS ORDERED: POVIDONE IODINE 5% (ANTISEPSIS KIT) 4 APPLICATIONS EACH NARE PRN (23:15)
[2016-07-27] MEDS ORDERED: CHLORHEXIDINE GLUCONATE 2 % 1 PACK (2 CLOTHS) TOPICAL PRN (23:15)
[2016-07-27] MEDS ORDERED: INSULIN HUMAN REGULAR 1,000 UNITS/10 ML VIAL SQ PRN (23:15)
[2016-07-27] MEDS ORDERED: SODIUM CHLORID 0.9% 500 ML IV PRN (23:15)
[2016-07-27] MEDS ORDERED: METOPROLOL TARTRATE 25 MG TAB PO PRN (23:15)
[2016-07-28] VITALS (7 sets, daily range): BP systolic 127–162; BP diastolic 51–76; PULSE 64–93; RESP 15–20; TEMP 96.2–97.5; O2SAT 91–95
[2016-07-28] MEDS: INSULIN NovoLIN REGULAR SUPPLEMENTAL SCALE SQ SCH ×4 (06:06→21:00)
[2016-07-28] MEDS: INSULIN HUMAN REGULAR 1,000 UNITS/10 ML VIAL SQ SCH ×3 (08:00→17:17)
[2016-07-28] MEDS: TIOTROPIUM BROMIDE 18 MCG INH INH SCH (09:00)
[2016-07-28] MEDS: SODIUM CHLORIDE 0.9% FLUSH 10 ML FLUSH IV FLUSH SCH ×2 (09:00→22:15)
[2016-07-28] MEDS: BUMETANIDE 1 MG TAB PO SCH ×2 (09:00→22:15)
[2016-07-28] MEDS: ALBUTEROL SULFATE 90 MCG/ACT HFA 8 GM INHALER INH SCH ×4 (09:00→22:18)
[2016-07-28] MEDS: LISINOPRIL 20 MG TAB PO SCH (09:00)
[2016-07-28] MEDS: DIGOXIN 0.25 MG TAB PO SCH (09:00)
[2016-07-28] MEDS: DOCUSATE SODIUM 50 MG/SENNA 8.6 MG TAB PO SCH ×2 (09:00→22:15)
[2016-07-28] MEDS: INSULIN DETEMIR 100 UNITS/ML VIAL SQ SCH ×2 (09:00→22:16)
[2016-07-28] MEDS: LEVOFLOXACIN 250 MG TAB PO SCH (09:00)
[2016-07-28] MEDS: GABAPENTIN 300 MG CAP PO SCH ×2 (09:00→22:15)
[2016-07-28] MEDS: DILTIAZEM HCL 30 MG TAB PO SCH ×4 (09:00→22:15)
[2016-07-28] MEDS ORDERED: DEXAMETHASONE SOD PHOS 4 MG/ML VIAL ONE (10:36)
[2016-07-28] MEDS ORDERED: FAMOTIDINE 20 MG/2 ML VIAL ONE (10:36)
[2016-07-28] MEDS ORDERED: ACETAMINOPHEN 1000 MG/100 ML VIAL IV ONE (10:36)
[2016-07-28] MEDS ORDERED: ceFAZolin INJ 1,000 MG VIAL ONE (10:55)
[2016-07-28] MEDS ORDERED: SODIUM CHLORIDE 0.9% INJ 100 ML ONE (10:56)
[2016-07-28] MEDS ORDERED: ceFAZolin 1,000 MG/NS 100 ML IV ONE ×2 (11:30)
[2016-07-28] MEDS ORDERED: IOHEXOL 350 MG/ML 50 ML BTL (for RAD DIAG) ONE (11:36)
[2016-07-28] MEDS ORDERED: SUGAMMADEX SODIUM 200 MG/2 ML VIAL IV PUSH ONE ×2 (11:43)
--- NOTE | 2016-07-28 11:56 | PD.OP ---
Operative Report Date of Surgery: Jul 28, 2016 Preoperative Diagnosis: Right hydronephrosis with right ureteral calculus Postoperative Diagnosis: Same Procedure: Cystoscopy, right retrograde study, right double-J stent insertion Anesthesia: NATALEE Surgeon: Sagar Joseph Gaming Manager(s): None Resident Surgeon: None Operation and Findings: 71 year-old male with findings obstructing mid ureteral stone causing hydronephrosis with right flank pain and obstruction. Decision was made to bring the patient to the operating room to undergo cystoscopy right retrograde study right double-J stent insertion. Risk and [place] were discussed preoperatively and the patient was willing to proceed. Patient was brought to the operating room and identified by myself as Jeferson Andres. He was placed in the dorsal lithotomy position, prepped and draped in usual sterile fashion, received general endotracheal tube anesthesia and preprocedure antibiotics were given. 22 Afghan scope was inserted in the bladder elena cystoscopy did not reveal any abnormalities. A 5 Afghan ureteral catheter was inserted into the right ureteral orifice and a retrograde study was performed. Filling defect was identified in the mid ureter. A 0.35 sensor wire was passed through the open-ended catheter with a good curl in the kidney. A 6 Afghan 22 cm stent was passed over the wire and into the kidney. The bladder was evacuated he tolerated the procedure well. In the future he will need to undergo right extraportal shockwave lithotripsy and will need to hold anticoagulation one week prior. This will be scheduled in the next few weeks. He was extubated and transferred to her room in stable condition. Sagar Joseph DO Jul 28, 2016 11:56
[2016-07-28] MEDS ORDERED: ONDANSETRON HCL 4 MG/2 ML VIAL IV PUSH ONE (12:00)
[2016-07-28] MEDS ORDERED: PHENYLEPH/NS 1000 MCG/10 ML SYR IV ONE (12:00)
[2016-07-28] MEDS ORDERED: PROPOFOL 200 MG/20 ML AMP IV ONE (12:00)
[2016-07-28] MEDS ORDERED: ePHEDrine/NS 25 MG/5 ML SYR IV ONE (12:00)
[2016-07-28] MEDS ORDERED: MIDAZOLAM HCL 2 MG/2 ML VIAL ONE (12:20)
[2016-07-28] MEDS ORDERED: fentaNYL CITRATE 250 MCG/5 ML AMP ONE (12:20)
--- NOTE | 2016-07-28 13:03 | HHI.PR ---
Subjective Remarks back from surgery- awake and aler no pain complains voided already Objective Vitals Vital Signs Date Time Temp Pulse Resp B/P Pulse Ox O2 Delivery O2 Flow Rate FiO2 07/28/16 09:47 84 07/28/16 08:00 97.5 93 16 146/64 93 07/28/16 04:00 97.5 64 16 141/63 95 07/28/16 00:00 97.1 71 20 148/66 94 07/27/16 20:00 97.6 79 20 156/67 94 07/27/16 15:45 98.0 74 18 152/67 95 I/O 07/27/16 07/27/16 07/27/16 07/28/16 07/28/16 07/28/16 07:00 15:00 23:00 07:00 15:00 23:00 Intake Total 240 ml 660 ml 780 ml 240 ml Balance 240 ml 660 ml 780 ml 240 ml Intake Oral 240 ml 660 ml 780 ml 240 ml # Voids 2 3 2 1 # Bowel Movements 0 0 0 0 Result Diagram: 07/27/16 0420 07/27/16 0420 Imaging Last Impressions Chest X-Ray 07/23/16 1638 Signed Impressions: Service Date/Time: Saturday, July 23, 2016 17:18 - CONCLUSION: No acute disease. Shane Kennedy MD FACR Objective Remarks awake and aletr, NAD anicteric lungs- decreased breath sounds, no rales or wheezes regular rhythm abdomen soft, nontender extremities trace edema Procedures 07/29- cystoscopy with right retrograde study with J stent insertion A/P Problem List: (1) DM (diabetes mellitus) ICD Code: E11.9 Status: Acute (2) COPD (chronic obstructive pulmonary disease) ICD Code: J44.9 Status: Acute (3) CHF (congestive heart failure) ICD Code: I50.9 Status: Acute (4) Lymphedema ICD Code: I89.0 Status: Acute (5) ALVINO (acute kidney injury) ICD Code: N17.9 Status: Acute (6) Hydronephrosis ICD Code: N13.30 Status: Acute (7) A-fib ICD Code: I48.91 Status: Acute Assessment and Plan 71 years sold male S/P cystoscopy with right J stent insertion for - Right ureteral stone with right Hydronephrosis: H/o renal stones, Incentive spirometry hourly ALVINO: - creatinine up again- obstructive component., previously 2.01 on 07/20/16, 1.03 on 07/14/16. recheck BMP post procedure UA negative for UTI. Uncontrolled DM: HgbA1C 8.4. On Insulin U-500 at home, no recent change to dosages. Continue current regimen and adjust dose COPD: in remission Recent admit to 05/2016 for COPD, found to have A-fib, s/ p Steroids/Antibiotics, presented to ER 07/14/16 and again 07/20/16, s/p Solu- Medrol IV and Levaquin, No wheezing, no SOB at this time. CXR w/ no acute findings, DuoNeb prn, resume home MDI. Lymphedema: Acute on Chronic. Resume Diuretics, since creatinine improved ff BMP CHF: Unknown EF. Follows w/ Dr. Rhoades as outpatient, no previous Echo on record. showing normal EF 60% with sclerotic aorta and moderately dilated left atrium. Continue diuretics, caution w/ renal insufficiency. History of A-fib: Controlled.- now in SR Resume home Eliquis, Diltiazem, Digoxin and ASA. . will hold eliquis for 2-3 days if procedure will be scheduled Uncontrolled hypertension: - continue to adjust . Lisinopril up to 20 mg and adjust DVT Prophylaxis: Eliquis- hold for now - Jabier Lozano MD Jul 28, 2016 13:03
[2016-07-28] MEDS ORDERED: SODIUM CHLOR 0.9% 1000 ML INJ 1,000 ML IV SCH (15:00)
[2016-07-28] MEDS: ASPIRIN EC 81 MG TABEC PO SCH (22:15)
[2016-07-28] MEDS: ATORVASTATIN 40 MG TAB PO SCH (22:15)
[2016-07-28] MEDS: TAMSULOSIN HCL 0.4 MG CAP PO SCH (22:15)
[2016-07-29 00:15] VITALS: BP 167/71; PULSE 88; RESP 17; TEMP 96; O2SAT 91
[2016-07-29] MEDS ORDERED: INSULIN ASPART 1,000 UNITS/10 ML VIAL SQ ONE (01:15)
[2016-07-29 04:00] VITALS: BP 142/68; PULSE 73; RESP 16; TEMP 98.5; O2SAT 92
[2016-07-29] MEDS: INSULIN NovoLIN REGULAR SUPPLEMENTAL SCALE SQ SCH ×2 (06:24→11:00)
[2016-07-29 08:00] VITALS: BP 138/63; PULSE 64; RESP 18; TEMP 96.9; O2SAT 94
[2016-07-29] MEDS: INSULIN HUMAN REGULAR 1,000 UNITS/10 ML VIAL SQ SCH ×2 (08:00→12:42)
[2016-07-29 08:20] LABS: BICARBONATE 31.3 MEQ/L (21.0-32.0); POTASSIUM 5.1 MEQ/L (3.5-5.1)
--- NOTE | 2016-07-29 08:21 | HHI.PR ---
Subjective Patient symptoms today Pt feeling much better. Voiding well with some blood which is normal s/p stent insertion. Objective Vital Signs Vital Signs Date Time Temp Pulse Resp B/P Pulse Ox O2 Delivery O2 Flow Rate FiO2 07/29/16 04:00 98.5 73 16 142/68 92 07/29/16 00:15 96.0 88 17 167/71 91 07/28/16 19:00 97.0 93 18 162/76 92 07/28/16 16:00 96.9 85 16 128/51 91 07/28/16 13:10 96.2 75 15 127/59 94 07/28/16 12:45 98.2 79 16 149/67 96 Nasal Cannula 2 07/28/16 12:30 86 24 163/71 98 Nasal Cannula 2 07/28/16 12:15 90 21 168/74 98 Nasal Cannula 2 07/28/16 12:11 92 22 172/74 99 Nasal Cannula 2 07/28/16 12:00 98.3 91 15 165/72 100 Nasal Cannula 2 07/28/16 09:47 84 Intake & Output 07/29/16 07/29/16 07:00 19:00 Intake Total 960 ml Balance 960 ml Intake Oral 960 ml # Voids 6 # Bowel Movements 0 Result Diagram: 07/27/1641907/27/16419 Objective Remarks Abd:soft,nt,nd Neg: CVAT Medications and IVs Current Medications Medications (Trade) Dose Ordered Sig/Von Route Start Time Stop Time Status Last Admin (NS Flush) 2 ml UNSCH PRN IV FLUSH 07/23/16 20:00 (NS Flush) 2 ml BID IV FLUSH 07/23/16 21:00 07/28/16 22:15 (Zofran Inj) 4 mg Q6H PRN IVP 07/23/16 20:00 (Tylenol) 650 mg Q6H PRN PO 07/23/16 20:00 ([place]land 5-325 Mg) 1 tab Q4H PRN PO 07/23/16 20:00 (Morphine Inj) 2 mg Q3H PRN IV 07/23/16 20:00 (Cinthia-Colace) 1 tab BID PO 07/23/16 21:00 07/28/16 22:15 (Milk Of Magnesia Liq) 30 ml Q12H PRN PO 07/23/16 20:00 (Senokot) 17.2 mg Q12H PRN PO 07/23/16 20:00 07/27/16 08:37 (Dulcolax Supp) 10 mg DAILY PRN RECTAL 07/23/16 20:00 (Lactulose Liq) 30 ml DAILY PRN PO 07/23/16 20:00 (Eliquis) 2.5 mg BID PO 07/23/16 21:00 Hold 07/27/16 08:36 (Ecotrin Ec) 81 mg HS PO 07/23/16 21:00 07/28/16 22:15 (Lipitor) 40 mg HS PO 07/23/16 21:00 07/28/16 22:15 (Lanoxin) 0.25 mg DAILY PO 07/24/16 09:00 07/27/16 08:37 (Cardizem) 30 mg QID PO 07/23/16 21:00 07/28/16 22:15 (Neurontin) 600 mg BID PO 07/23/16 21:00 07/28/16 22:15 (Flomax) 0.4 mg HS PO 07/23/16 21:00 07/28/16 22:15 (Spiriva Inh) 18 mcg DAILY INH 07/24/16 09:00 07/28/16 09:00 (Proair Hfa Inh) 2 puff QID INH 07/23/16 21:00 07/28/16 22:18 (Vasotec Inj) 1.25 mg Q6H PRN IV PUSH 07/24/16 15:45 07/26/16 20:38 (Bumetanide) 1 mg BID PO 07/24/16 21:00 07/28/16 22:15 (Levaquin) 250 mg DAILY PO 07/25/16 09:00 08/02/16 16:14 07/27/16 08:37 (D50w (Vial) Inj) 50 ml UNSCH PRN IV 07/25/16 13:15 (Glucagon Inj) 1 mg UNSCH PRN OTHER 07/25/16 13:15 (Prinivil) 20 mg DAILY PO 07/26/16 09:00 07/27/16 08:37 (Levemir Inj) 35 units Q12HR SQ 07/26/16 21:00 07/28/16 22:16 Insulin Human Regular 3 units 3 units TIDAC SQ 07/26/16 17:00 07/28/16 17:17 Lactated Ringer's 1,000 ml @ 30 mls/hr Q24H PRN IV 07/27/16 23:15 07/30/16 23:14 Sodium Chloride 500 ml @ 30 mls/hr [id number] PRN IV 07/27/16 23:15 07/30/16 23:14 (NS 1000 ml Inj) 1,000 ml @ 4 mls/hr Q24H IV 07/28/16 15:00 07/28/16 15:00 Assessment and Plan Assessment and Plan Stable s/p Right JJ stent insertion F/U in 2 weeks to schedule Right ESWL Will need to hold anticoagulation medication one week prior to scheduling of procedure Sagar Joseph DO Jul 29, 2016 08:21
[2016-07-29] MEDS: INSULIN DETEMIR 100 UNITS/ML VIAL SQ SCH (09:00)
[2016-07-29] MEDS: DILTIAZEM HCL 30 MG TAB PO SCH ×2 (09:02→12:40)
[2016-07-29] MEDS: DOCUSATE SODIUM 50 MG/SENNA 8.6 MG TAB PO SCH (09:02)
[2016-07-29] MEDS: BUMETANIDE 1 MG TAB PO SCH (09:02)
[2016-07-29] MEDS: LISINOPRIL 20 MG TAB PO SCH (09:02)
[2016-07-29] MEDS: LEVOFLOXACIN 250 MG TAB PO SCH (09:02)
[2016-07-29] MEDS: GABAPENTIN 300 MG CAP PO SCH (09:02)
[2016-07-29] MEDS: DIGOXIN 0.25 MG TAB PO SCH (09:02)
[2016-07-29] MEDS: TIOTROPIUM BROMIDE 18 MCG INH INH SCH (09:03)
[2016-07-29] MEDS: SODIUM CHLORIDE 0.9% FLUSH 10 ML FLUSH IV FLUSH SCH (09:03)
[2016-07-29] MEDS: ALBUTEROL SULFATE 90 MCG/ACT HFA 8 GM INHALER INH SCH ×2 (09:04→12:40)
--- NOTE | 2016-07-29 10:42 | HHI.FF ---
Face to Face Verification Diagnosis: (1) Hydronephrosis, right (2) COPD (chronic obstructive pulmonary disease) (3) DM (diabetes mellitus) Physical Therapy Order: Evaluate and Treat, Improve ambulation, Strength and gait training Home Health Nursing Order: Medical education Signs/symptoms of disease process Diabetic education Wound care and dressing changes Nursing assessment with vital signs I have seen patient Ramiro Andres on 07/29/16. My clinical findings support the need for the requested home health care services because: Ltd mobility - disease progression Need for psychosocial assistance Infection w/ risk of complications I certify that my clinical findings support that this patient is homebound because: Hx COPD- exertion dyspnea/weakness Need for psychosocial assistance Jabier Lozano MD Jul 29, 2016 10:42
--- NOTE | 2016-07-29 11:50 | HHI.PR ---
Subjective Remarks no flank pain or dysuria urine flow smooth uninterrupted light red tinged urine- expected per Urology afebrile Objective Vitals Vital Signs Date Time Temp Pulse Resp B/P Pulse Ox O2 Delivery O2 Flow Rate FiO2 07/29/16 08:00 96.9 64 18 138/63 94 07/29/16 04:00 98.5 73 16 142/68 92 07/29/16 00:15 96.0 88 17 167/71 91 07/28/16 19:00 97.0 93 18 162/76 92 07/28/16 16:00 96.9 85 16 128/51 91 07/28/16 13:10 96.2 75 15 127/59 94 07/28/16 12:45 98.2 79 16 149/67 96 Nasal Cannula 2 07/28/16 12:30 86 24 163/71 98 Nasal Cannula 2 07/28/16 12:15 90 21 168/74 98 Nasal Cannula 2 07/28/16 12:11 92 22 172/74 99 Nasal Cannula 2 07/28/16 12:00 98.3 91 15 165/72 100 Nasal Cannula 2 I/O 07/28/16 07/28/16 07/28/16 07/29/16 07/29/16 07/29/16 07:00 15:00 23:00 07:00 15:00 23:00 Intake Total 240 ml 830 ml 960 ml Output Total 440 ml Balance 240 ml 390 ml 960 ml Intake Oral 240 ml 530 ml 960 ml IV Total 0 ml Other 300 ml Output Urine Total 430 ml Estimated Blood Loss 10 ml # Voids 1 2 6 # Bowel Movements 0 0 Result Diagram: 07/27/16 0420 07/29/16 0715 Imaging Last Impressions Chest X-Ray 07/23/16 1638 Signed Impressions: Service Date/Time: Saturday, July 23, 2016 17:18 - CONCLUSION: No acute disease. Shane Kennedy MD FACR Objective Remarks awake and alert, NAD anicteric lungs- , no rales or wheezes regular rhythm abdomen soft, nontender, no CVA tenderness extremities noedema Procedures 07/29- cystoscopy with right retrograde study with J stent insertion A/P Problem List: (1) DM (diabetes mellitus) ICD Code: E11.9 Status: Acute (2) COPD (chronic obstructive pulmonary disease) ICD Code: J44.9 Status: Acute (3) CHF (congestive heart failure) ICD Code: I50.9 Status: Acute (4) Lymphedema ICD Code: I89.0 Status: Acute (5) ALVINO (acute kidney injury) ICD Code: N17.9 Status: Acute (6) Hydronephrosis ICD Code: N13.30 Status: Acute (7) A-fib ICD Code: I48.91 Status: Acute Assessment and Plan 71 years sold male S/P cystoscopy with right J stent insertion for - Right ureteral stone with right Hydronephrosis: H/o renal stones, Incentive spirometry hourly ALVINO:with underlying CKI from DM nephropathy - creatinine up again- obstructive component., previously 2.01 on 07/20/16, 1.03 on 07/14/16. recheck BMP post procedure UA negative for UTI. Uncontrolled DM: HgbA1C 8.4. On Insulin U-500 at home, no recent change to dosages. Continue current regimen and adjust dose discussed with him goals- he is well aware. good hypoglycemic awareness instruct him to ff up with PCP- dr. Alfred COPD: in remission Recent admit to 05/2016 for COPD, found to have A-fib, s/ p Steroids/Antibiotics, presented to ER 07/14/16 and again 07/20/16, s/p Solu- Medrol IV and Levaquin, No wheezing, no SOB at this time. CXR w/ no acute findings, DuoNeb prn, resume home MDI. Lymphedema: Acute on Chronic. Resume Diuretics, since creatinine improved ff BMP CHF: Unknown EF. Follows w/ Dr. Rhoades as outpatient, no previous Echo on record. showing normal EF 60% with sclerotic aorta and moderately dilated left atrium. Continue diuretics, caution w/ renal insufficiency. History of A-fib: Controlled.- now in SR Resume home Eliquis, Diltiazem, Digoxin and ASA. . will hold eliquis for 2-3 days if procedure will be scheduled Uncontrolled hypertension: - continue to adjust . Lisinopril up to 20 mg and adjust- OP ff up DVT Prophylaxis: restart as OP. Per Urology- OP ff up in 2 weeks to schedule right ESWL Procedure to be scheduled then . will be given instructions to hold Eliquis one week prior to procedure Jabier Lozano MD Jul 29, 2016 11:50
--- NOTE | 2016-07-29 11:54 | HHI.DS ---
Discharge Summary Admission Date Jul 23, 2016 at 20:04 Discharge Date: Jul 29, 2016 Admitting Diagnosis hyperglycemia, brittle diabetes, renal insufficiency, peripheral jesus (1) Hydronephrosis ICD Code: N13.30 Diagnosis: Principal (2) DM (diabetes mellitus) ICD Code: E11.9 Diagnosis: Secondary (3) ALVINO (acute kidney injury) ICD Code: N17.9 Diagnosis: Secondary (4) COPD (chronic obstructive pulmonary disease) ICD Code: J44.9 Diagnosis: Secondary (5) CHF (congestive heart failure) ICD Code: I50.9 Diagnosis: Secondary (6) Lymphedema ICD Code: I89.0 Diagnosis: Secondary (7) A-fib ICD Code: I48.91 Diagnosis: Secondary Procedures 07/29- cystoscopy with right retrograde study with J stent insertion Brief History - From Admission This is a 71-year-old male with a PMH of A. fib on Eliquis, HTN, Hyperlipidemia , Kidney Stones, CHF (Unknown EF), COPD, Lymphedema, CAD and DM who was referred to the ER by his Urologist, Dr. Coppola for evaluation of uncontrolled DM. Pt w/ previous ER presentations in the past week. Initially presented on 07/14/16 after [facility] for [facility] Exacerbation and was to be admitted, however pt declined. Presented to ER again 07/20/16 for c/o non-productive cough, CHF/COPD exacerbation, s/p Solu- Medrol and DuoNeb, d/c'd home on Medrol Dose-pack and Levaquin for possible PNA. Also noted to have ALVINO and had CT Abd/Pelv w/ moderate right hydronephrosis due to 7-8mm proximal ureter, d/c'd home w/ plans to follow up w / Urologist. Seen in office by Urologist today and noted to have elevated BS at which point referred to ER. Pt denies any symptoms. Does note worsening lower extremity edema and persistent non-productive cough. On arrival, BP 183/ 85, HR 76, O2 sat 94% on RA, Afebrile. WBC 15.0, previously 12.4 on 07/20/16. Creatinine 2.19, previously 2.01 on 07/20/16, 1.03 on 07/14/16. BS 455. Patient reports normal urinary output. UA negative. CXR with no acute findings. S/p 10u Insulin in ER. CBC/BMP: 07/27/16 0420 07/29/16 0715 Significant Findings Laboratory Tests Test 07/27/16 07/29/16 04:20 07:15 White Blood Count 15.7 TH/MM3 (4.0-11.0) Red Blood Count 3.93 MIL/MM3 (4.50-5.90) Hemoglobin 11.0 GM/DL (13.0-17.0) Hematocrit 34.5 % (39.0-51.0) Neutrophils (%) (Auto) 71.2 % (16.0-70.0) Neutrophils # (Auto) 11.2 TH/MM3 (1.8-7.7) Monocytes # (Auto) 1.0 TH/MM3 (0-0.9) Blood Urea Nitrogen 45 MG/DL (7-18) 43 MG/DL (7-18) Creatinine 1.96 MG/DL 1.78 MG/DL (0.60-1.30) (0.60-1.30) Estimat Glomerular Filtration 34 ML/MIN (>89) 38 ML/MIN (>89) Rate Random Glucose 271 MG/DL 268 MG/DL (74-106) (74-106) Imaging Last Impressions Chest X-Ray 07/23/16 1638 Signed Impressions: Service Date/Time: Saturday, July 23, 2016 17:18 - CONCLUSION: No acute disease. 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 recheck BMP post procedure UA negative for UTI. Uncontrolled DM: HgbA1C 8.4. On Insulin U-500 at home, no recent change to dosages. Continue current regimen and adjust dose discussed with him goals- he is well aware. good hypoglycemic awareness instruct him to ff up with PCP- dr. Alfred COPD: in remission Recent admit to 05/2016 for COPD, found to have A-fib, s/ p Steroids/Antibiotics, presented to ER 07/14/16 and again 07/20/16, s/p Solu- Medrol IV and Levaquin, No wheezing, no SOB at this time. CXR w/ no acute findings, DuoNeb prn, resume home MDI. Lymphedema: Acute on Chronic. Resume Diuretics, since creatinine improved ff BMP CHF: Unknown EF. Follows w/ Dr. Rhoades as outpatient, no previous Echo on record. showing normal EF 60% with sclerotic aorta and moderately dilated left atrium. Continue diuretics, caution w/ renal insufficiency. History of A-fib: Controlled.- now in SR Resume home Eliquis, Diltiazem, Digoxin and ASA. . will hold eliquis for 2-3 days if procedure will be scheduled Uncontrolled hypertension: - continue to adjust . Lisinopril up to 20 mg and adjust- OP ff up DVT Prophylaxis: restart as OP. Per Urology- OP ff up in 2 weeks to schedule right ESWL Procedure to be scheduled then . will be given instructions to hold Eliquis one week prior to procedure Pt Condition on Discharge: Stable Discharge Disposition: Disch w/ Home Health Serv Discharge Time: <= 30 minutes Discharge Instructions DIET: Follow Instructions for: Heart Healthy Diet, Diabetic Diet Speech Therapy-Diet Recommends: Regular Activities you can perform: Weight Bearing as Sabra Follow up Referrals: PCP Follow-up - 08/02/16 with [facility] - 2 Weeks with Sagar Joseph DO New Medications: Albuterol 18 GM Inh (Ventolin Hfa 18 GM Inh) 90 Mcg/Act Aer 2 PUFF INH QID COPD Days 30 INHALER Tiotropium Inh (Spiriva Handihaler) 18 Mcg Cap 18 MCG INH DAILY COPD Days 30 CAP Continued Medications: Apixaban (Eliquis) 2.5 Mg Tab 2.5 MG PO BID Blood Clot Prevention Ref [address] (Aspirin 81) 81 Mg Tabdr 81 MG PO HS Ref 0 TAB Atorvastatin (Atorvastatin) 40 Mg Tab 40 MG PO HS Cholesterol Management #30 Ref 0 TAB Bumetanide (Bumetanide) 1 Mg Tab 1 MG PO BID #60 Ref 0 TAB Digoxin (Digoxin) 0.25 Mg Tab 0.25 MG PO DAILY Regulate Heart Beat #30 Ref 0 TAB Diltiazem (Diltiazem) 30 Mg Tab 30 MG PO QID Angina #120 Ref 0 TAB Gabapentin (Gabapentin) 600 Mg Tab 600 MG PO BID #60 Ref 0 TAB Insulin Regular (Human) Concentrate Inj (Humulin R U-500 (Concentrate) Kwikpen Inj) 1,500 Units/3 Ml Pen 22 UNITS SQ AC LUNCH Blood Sugar Management Ref 0 PEN Insulin Regular (Human) Concentrate Inj (Humulin R U-500 (Concentrate) Kwikpen Inj) 1,500 Units/3 Ml Pen 18 UNITS SQ AC DINNER Blood Sugar Management Ref 0 PEN Ipratropium-Albuterol Inh (Combivent Respimat Inh) 20-100 Usp/Act Aero 1 PUFF INH QID Asthma Management #1 Ref 0 INHALER Tamsulosin (Tamsulosin) 0.4 Mg Cap 0.4 MG PO HS Manage Prostate Problems #30 Ref 0 CAP Discontinued Medications: Insulin Regular (Human) Concentrate Inj (Humulin R U-500 (Concentrate) Kwikpen Inj) 1,500 Units/3 Ml Pen 26 UNITS SQ AC BREAKFAST Blood Sugar Management Ref 0 PEN Levofloxacin (Levaquin) 500 Mg Tablet 1 TAB PO q day Days 9 Methylprednisolone Dosepak (Medrol Dosepak) 4 Mg Dspk 4 MG PO DIRECTED Per Pharmacist direction #1 Ref 0 Jabier Pope MD Jul 29, 2016 11:54
[2016-07-29] MEDS ORDERED: VENTAER INH (12:04)
[2016-07-29] MEDS ORDERED: SPIRCAP INH (12:04)
[2016-07-29 12:40] VITALS: PULSE 78
[2016-08-11] MEDS ORDERED: INSU1SOL SQ (07:13)
[2016-08-11] MEDS ORDERED: PERC5TAB12 PO (10:09)
== END 2016-07-29 14:44 | disposition home health service (06) | DRG 638 ==
LOC: NEPE 16:01 → NEDA 19:37 → OBSVTOIN 20:04 → N06B 21:46
PROVIDERS: ADMIT Internal Medicine; ATTEND Internal Medicine
PROC: BT1DYZZ Fluoroscopy of Right Kidney, Ureter and Bladder using Other Contrast (ICD-10-PCS; 2016-07-28)
PROC: 0T768DZ Dilation of Right Ureter with Intraluminal Device, Via Natural or Artificial Opening Endoscopic (ICD-10-PCS; principal; 2016-07-28 11:04)
DX: E11.65 Type 2 diabetes mellitus with hyperglycemia (principal); Z68.41 Body mass index [BMI] 40.0-44.9, adult; N17.9 Acute kidney failure, unspecified; I45.2 Bifascicular block; E11.22 Type 2 diabetes mellitus with diabetic chronic kidney disease; I13.0 Hypertensive heart and chronic kidney disease with heart failure and stage 1 through stage 4 chronic kidney disease, or unspecified chronic kidney disease; I50.9 Heart failure, unspecified; N13.2 Hydronephrosis with renal and ureteral calculous obstruction; J44.9 Chronic obstructive pulmonary disease, unspecified; E66.01 Morbid (severe) obesity due to excess calories; I48.0 Paroxysmal atrial fibrillation; I25.10 Atherosclerotic heart disease of native coronary artery without angina pectoris; E78.5 Hyperlipidemia, unspecified; I73.9 Peripheral vascular disease, unspecified; F32.9 Major depressive disorder, single episode, unspecified; E11.319 Type 2 diabetes mellitus with unspecified diabetic retinopathy without macular edema; N18.3 Chronic kidney disease, stage 3 (moderate); I89.0 Lymphedema, not elsewhere classified; Z95.5 Presence of coronary angioplasty implant and graft; Z79.01 Long term (current) use of anticoagulants; Z87.891 Personal history of nicotine dependence; Z79.4 Long term (current) use of insulin; Z91.19 Patient's noncompliance with other medical treatment and regimen
CPT/HCPCS: 36600; 71010; 76000; 80048; 80053; 81001; 82010; 82805; 82947; 82948; 83036; 83880; 85025; 93306; 96372; C1769; C2617; J0131; J0690; J1100; J1815; J1940; J2250; J2370; J2405; J3010; J7030; J7040; Q9967

== ENCOUNTER → 2016-08-11 | Day surgery (SDC) | payer OTHER ==
[~2016-08-11] VITALS: Ht 165.1 cm; Wt 102.4 kg
[~2016-08-11] MED LIST changes: +CHLORHEXIDINE GLUCONATE 2 % 1 PACK (2 CLOTHS) TOPICAL PRN; +DO NOT ADM ANY ANTICOAGULANT DRUGS PRN; +INSULIN HUMAN REGULAR 1,000 UNITS/10 ML VIAL SQ PRN; +LACTATED RINGER'S 1000 ML INJ 1,000 ML IV ONE; +LACTATED RINGER'S 1000 ML IV PRN; -LEVA500T20 PO; -MEDR4PAK PO; +METOPROLOL TARTRATE 25 MG TAB PO PRN; +MIDAZOLAM HCL 2 MG/2 ML VIAL ONE; +ONDANSETRON HCL 4 MG/2 ML VIAL IV PUSH ONE; +ONDANSETRON HCL 4 MG/2 ML VIAL IV PUSH PRN; +PERC5TAB12 PO; +POVIDONE IODINE 5% (ANTISEPSIS KIT) 4 APPLICATIONS EACH NARE PRN; +PROPOFOL 200 MG/20 ML AMP IV ONE; +SODIUM CHLORID 0.9% 500 ML IV PRN; +SPIRCAP INH; +VENTAER INH; +ePHEDrine/NS 25 MG/5 ML SYR IV ONE; +fentaNYL CITRATE 250 MCG/5 ML AMP ONE; +oxyCODONE/ACETAMINOPHEN 5 MG/325 MG TAB PO PRN
--- NOTE | 2016-08-11 07:02 | RADRPT ---
EXAM DATE/TIME: 08/11/2016 06:42 [facility] COMPARISON: CT ABDOMEN & PELVIS W/O CONTRAST, July 20, 2016, 21:45. INDICATIONS : Pre OP lithotripsy. MEDICAL HISTORY : None. SURGICAL HISTORY : None. ENCOUNTER: Initial ACUITY: 1 day PAIN SCORE: 0/10 LOCATION: Bilateral abdomen FINDINGS: Double-J stent is present on the right side. No dilated loops of small or large bowel. Vascular aby cification proximal thighs. CONCLUSION: Right sided double J stent in place. Jake Jenkins MD on August 11, 2016 at 6:59 Board Certified Radiologist. This report was verified electronically.
[2016-08-11 07:19] VITALS: BP 145/70; PULSE 79; RESP 16; TEMP 98.3; O2SAT 97
--- NOTE | 2016-08-11 10:08 | PD.OP ---
Operative Report Date of Surgery: Aug 11, 2016 Preoperative Diagnosis: (1) Ureteral calculus, right Postoperative Diagnosis: (1) Ureteral calculus, right Procedure: Extracorporeal shockwave lithotripsy right ureteral calculus Surgeon: Raymundo Newell Cane Piler(s): General Operation and Findings: Indication for procedure: Case of a pleasant 71-year-old gentleman with a history of a 8mm obstructing right ureteral calculus status post stent placement and presents now for shockwave lithotripsy. Operative procedure in detail: Patient was brought to the operating room suite and placed supine on the OR table. He was next placed under general anesthesia. After an appropriate timeout was undertaken I proceeded with localizing the patient's right ureteral calculus. The stone appeared to have migrated down to the distal third of the ureter and was noted to be very light in intensity. I next proceeded with shockwave lithotripsy utilizing the Lopez Piezolith device. The patient received a total of 3000 shocks with a maximum power level setting of 20. The stone still appeared to be intact at the conclusion of the procedure. The patient tolerated the procedure without complications and was transferred to the PACU in satisfactory condition. Raymundo Newell MD Aug 11, 2016 10:08
[2016-08-11 11:41] VITALS: BP 142/64; PULSE 75; RESP 18; TEMP 97.6; O2SAT 96
== END | disposition home or self-care (01) ==
LOC: HSDC 06:24
PROVIDERS: ATTEND Urology
DX: N20.1 Calculus of ureter (principal)
CPT/HCPCS: 00872; 50590; 74000; J1815; J2250; J2405; J3010; J7120

== ENCOUNTER → 2016-09-23 | Day surgery (SDC) | payer OTHER ==
[~2016-09-23] VITALS: Ht 165.1 cm; Wt 107.4 kg
[~2016-09-23] MED LIST changes: +ACETAMINOPHEN/HYDROcodone 325 MG/5 MG TAB PO PRN; +BELLADONNA ALKALOIDS/OPIUM 60 MG SUPP RECTAL ONE; +CIPR-9 PO; +GENTAMICIN INJ 240 MG in SODIUM CHLORIDE 0.9% INJ 100 ML IV SCH; +IOHEXOL 350 MG/ML 50 ML BTL (for RAD DIAG) ONE; -LACTATED RINGER'S 1000 ML INJ 1,000 ML IV ONE; -MIDAZOLAM HCL 2 MG/2 ML VIAL ONE; +MORPHINE SULFATE 4 MG/ML INJ IV PRN; +NEOSTIGMINE 3 MG/3 ML SYR IV ONE; +PHEN0.4T PO; +PHENYLEPH/NS 1000 MCG/10 ML SYR IV ONE; +SODIUM CHLORIDE 0.9% INJ 100 ML ONE; -SPIRCAP INH; +ceFAZolin 1,000 MG/NS 100 ML IV SCH; +ceFAZolin INJ 1,000 MG VIAL ONE; -oxyCODONE/ACETAMINOPHEN 5 MG/325 MG TAB PO PRN
[2016-09-23 13:09] VITALS: BP 136/60; PULSE 77; RESP 18; TEMP 98.4; O2SAT 95
[2016-09-23 13:24] LABS: AUTOMATED NEUTROPHIL # 7.1 TH/MM3 (1.8-7.7); BASOPHIL # 0.1 TH/MM3 (0-0.2); BASOPHIL % 0.6 % (0.0-2.0); EOSINOPHIL # 0.2 TH/MM3 (0-0.4); EOSINOPHIL % 2.1 % (0.0-4.0); HEMATOCRIT 30.6 % (39.0-51.0); HEMO FLAGS DIFF FINAL; LYMPH % 26.4 % (9.0-44.0); LYMPHOCYTE # 2.9 TH/MM3 (1.0-4.8); MEAN CELL VOLUME 84.3 FL (80.0-100.0); MEAN CORPUSCULAR HEMOGLOBIN 27.2 PG (27.0-34.0); MEAN CORPUSCULAR HGB CONC 32.3 % (32.0-36.0); MONO % 5.6 % (0.0-8.0); NEUT % 65.3 % (16.0-70.0); PLATELET COUNT 215 TH/MM3 (150-450); RED BLOOD COUNT 3.63 MIL/MM3 (4.50-5.90); WHITE BLOOD COUNT 10.9 TH/MM3 (4.0-11.0)
--- NOTE | 2016-09-23 16:17 | PD.OP ---
Operative Report Date of Surgery: Sep 23, 2016 Preoperative Diagnosis: Right ureteral calculus Postoperative Diagnosis: Same Procedure: Cystoscopy, right retrograde pyelogram, right ureteroscopy, laser lithotripsy, stone extraction with right double-J stent exchange Anesthesia: NATALEE Surgeon: Sagar Joseph [employer] [place] [employer] Manager(s): None Resident Surgeon: None Operation and Findings: 71-year-old male with a 6 mm proximal right ureteral stent status post cystoscopy right double-J stent placement in the past. Patient elected to undergo cystoscopy with right ureteroscopy laser lithotripsy and stone extraction right double-J stent exchange. Risk and benefits were discussed and the patient was willing to proceed. Patient was brought to the operating room and identified by myself as Jeferson Andres. He was placed in the dorsal lithotomy position, prepped and draped in usual sterile fashion, received preprocedure antibiotics, and general endotracheal tube anesthesia was administered. 22 Turkmen scope was inserted into the bladder. The right ureter stent was identified and using alligator graspers it was brought to the urethral meatus. A 0.35 sensor wire was then passed through the stent with a good curl in the kidney and the stent was then removed. A rigid ureteroscope was then passed along the wire up into the ureter and the stone was visualized. Using a 200 laser fiber at a setting of 10 and 1000 the stone was then fragmented. A nitinol basket was used to retrieve the stone fragments. Once the stone fragments were clearly ureter a retrograde study was then performed. No filling defects were identified within the ureter. The ureteroscope was then removed and then the cystoscope was backloaded over the wire and a 22 cm 6 Turkmen right double-J stent was placed with good curl in the kidney and a good curl in the bladder. He tolerated the procedure well and will contracture, residual condition. He will follow-up in the office in a few weeks to undergo cystoscopy with stent removal and will review his stone analysis at that time. Sagar Joseph DO Sep 23, 2016 16:17
[2016-09-23 17:49] VITALS: BP 161/76; PULSE 87; RESP 22; TEMP 97; O2SAT 92
== END | disposition home or self-care (01) ==
LOC: HSDC 12:05
PROVIDERS: ATTEND Urology
DX: N20.1 Calculus of ureter (principal); E11.9 Type 2 diabetes mellitus without complications; Z01.818 Encounter for other preprocedural examination
CPT/HCPCS: 00918; 52356; 82365; 82370; 82948; 85025; 88300; J0690; J1580; J2405; J3010; Q9967; 74420; C1769; J2370; J2710